=== PATIENT | female | born 1950 | race African-American/Black ===

== ENCOUNTER 2018-09-22 02:31 | Emergency (ER) | payer MEDICARE, MEDICAID ==
[2018-09-22] MEDS ORDERED: METOCLOPRAMIDE HCL INJ/PF 10 MG/2 ML SDV IV ONE (02:54)
[2018-09-22] MEDS ORDERED: RINGERS SOLUTION,LACTATED 500 ML IV ONE (02:54)
[2018-09-22] MEDS ORDERED: HYDROMORPHONE HCL INJ/PF 2 MG/ML AMPULE IV PRN (02:54)
--- NOTE | 2018-09-22 03:36 | ER Document Report ---
ED General - General Stated Complaint: ABDOMINAL PAIN Time Seen by Provider: 09/22/18 02:35 Notes: Patient is a 68-year-old female with a past medical history of stage IV liver cancer, currently on hospice who presents by EMS due to concerns of uncontrolled pain. The patient is taking multiple forms of pain medication at home including oral hydromorphone but this is not been controlling her abdominal pain today. The patient also reports that she has not had a bowel movement in approximately 24 hours. She also states that she is having difficulty urinating. Abdominal pain is described as diffuse, throbbing, aching and constant in nature. She states that her oral pain medications moderately can improve her pain. Nothing worsens her pain. She has not had any vomiting or any significant nausea. No fever or constitutional symptoms. Daughter at the bedside states that this is not atypical for the patient to have pain to this degree. Past Medical History - General Information source: Patient, Relative - Social History Smoking Status: Never Smoker Frequency of alcohol use: None Drug Abuse: None Lives with: Family Family History: Reviewed & Not Pertinent Review of Systems - Review of Systems Notes: Constitutional: Negative for fever. HENT: Negative for sore throat. Eyes: Negative for visual changes. Cardiovascular: Negative for chest pain. Respiratory: Negative for shortness of breath. Gastrointestinal: Positive for abdominal pain, nausea Genitourinary: Positive for urinary hesitancy Negative for dysuria. Musculoskeletal: Negative for back pain. Skin: Negative for rash. Neurological: Negative for headaches, weakness or numbness. 10 point ROS negative except as marked above and in HPI. Physical Exam - Vital signs Vitals: Temp Pulse Resp BP Pulse Ox 98.1 F 74 16 171/81 H 99 09/22/18 02:44 09/22/18 02:44 09/22/18 02:44 09/22/18 02:44 09/22/18 02:44 Interpretation: Hypertensive Notes: PHYSICAL EXAMINATION: GENERAL: Appears moderately uncomfortable but in no acute distress HEAD: Atraumatic, normocephalic. EYES: Pupils equal round and reactive to light, extraocular movements intact, sclera anicteric, conjunctiva are normal. ENT: nares patent, oropharynx clear without exudates. Moist mucous membranes. NECK: Normal range of motion, supple without lymphadenopathy LUNGS: Breath sounds clear to auscultation bilaterally and equal. No wheezes rales or rhonchi. HEART: Regular rate and rhythm without murmurs ABDOMEN: Soft, nontender, normoactive bowel sounds. No guarding, no rebound. No masses appreciated. EXTREMITIES: Normal range of motion, no pitting or edema. No cyanosis. NEUROLOGICAL: No focal neurological deficits. Moves all extremities spontaneously and on command. PSYCH: Highly anxious SKIN: Warm, Dry, normal turgor, no rashes or lesions noted. Course - Re-evaluation Re-evalutation: 09/22/18 03:45 Patient presents with generalized abdominal pain, difficulty having a bowel movements, difficulty urinating. Patient appears quite uncomfortable although is improved after receiving IV hydromorphone. She has not had vomiting. I had a very clear conversation with the patient and her daughter at bedside about what the goals of care were today. Patient and family at bedside agree that we do not wish to pursue any diagnostic work-up and the patient is here exclusively for symptom control as she is on hospice with terminal cancer. As her pain has been improved here in the emergency department she will be discharged home with follow-up recommendations and continue guidance with hospice. - Vital Signs Vital signs: Temp Pulse Resp BP Pulse Ox 98.1 F 74 16 171/81 H 99 09/22/18 02:44 09/22/18 02:44 09/22/18 02:44 09/22/18 02:44 09/22/18 02:44 Discharge - Discharge Clinical Impression: Metastatic cancer to liver, Chronic abdominal pain Condition: Good Disposition: HOME, SELF-CARE Additional Instructions: As you are in hospice care, we have elected to not proceed with imaging or labs today rather treating your pain. You may return to the emergency department at any time for control of your symptoms. Please continue taking all medications as prescribed your hospice care.
[2018-09-22 05:32] VITALS: BP 152/76
== END 2018-09-22 05:30 | disposition home or self-care (01) ==
LOC: ER 02:31
DX: C22.8 Malignant neoplasm of liver, primary, unspecified as to type (principal); C79.9 Secondary malignant neoplasm of unspecified site; G89.29 Other chronic pain; R10.9 Unspecified abdominal pain; R11.0 Nausea; R39.11 Hesitancy of micturition
CPT/HCPCS: 99284; 96374; 96375; J2765; J1170; J7120

== ENCOUNTER 2018-10-04 17:51 | Inpatient (IN) | payer MEDICARE, MEDICAID ==
[2018-10-04 18:41] LABS: ABSOLUTE MONOCYTES (AUTO) 0.8 10^3/uL (0.1-1.4); ABSOLUTE NEUT (AUTO) 5.7 10^3/uL (1.7-8.2); BASOPHILS % (AUTO) 0.3 % (0-2); HEMATOCRIT 42.5 % (36.0-47.0); HEMOGLOBIN 13.9 g/dL (12.0-15.5); LYMPHOCYTES % (AUTO) 23.5 % (13-45); MEAN CORPUSCULAR HEMOGLOBIN 25.9 pg (27.0-33.4); MEAN CORPUSCULAR HGB CONC 32.8 g/dL (32.0-36.0); MEAN CORPUSCULAR VOLUME 79 fl (80-97); MONOCYTES % (AUTO) 9.4 % (3-13); PLATELET COUNT 182 10^3/uL (150-450); RED BLOOD COUNT 5.39 10^6/uL (3.72-5.28); RED CELL DISTRIBUTION WIDTH 16.8 % (11.5-14.0); SEGMENTED NEUTROPHILS % (AUTO) 66.8 % (42-78); TOTAL CELLS COUNTED % (AUTO) 100 %; WHITE BLOOD COUNT 8.5 10^3/uL (4.0-10.5)
[2018-10-04] MEDS ORDERED: MORPHINE SULFATE 10 MG/ML INJ IV ONE (18:42)
[2018-10-04] MEDS ORDERED: ONDANSETRON HCL INJ/PF 4 MG/2 ML SDV IV ONE (18:42)
--- NOTE | 2018-10-04 18:46 | ER Document Report ---
ED GI/ - General Chief Complaint: Pain Stated Complaint: ABDOMINAL PAIN Time Seen by Provider: 10/04/18 18:23 Information source: Patient Cannot obtain history due to: Other - Patient is a poor historian. TRAVEL OUTSIDE OF THE [place] IN LAST 30 DAYS: No - HPI Patient complains to provider of: Abdominal pain Onset: Other - 3 weeks. Timing/Duration: Gradual Quality of pain: Sharp Severity at maximum: Moderate Severity in ED: Moderate Pain Level: 3 Vaginal bleeding (Compared to normal period): None Associated symptoms: Other - Patient said the refrigerator fell on top of part 3 weeks ago. Exacerbated by: Movement Relieved by: Remaining still Similar symptoms previously: No Recently seen / treated by doctor: No - Related Data Allergies/Adverse Reactions: Iodinated Contrast- Oral and IV Dye Allergy (Verified 10/04/18 20:10) morphine Allergy (Verified 10/04/18 18:48) Sulfa (Sulfonamide Antibiotics) Allergy (Verified 10/04/18 18:35) Past Medical History - Social History Smoking Status: Unknown if Ever Smoked Family History: Reviewed & Not Pertinent Patient has suicidal ideation: No Patient has homicidal ideation: No Renal/ Medical History: Denies: Hx Peritoneal Dialysis GI Medical History: Reports: Hx Gastroesophageal Reflux Disease Past Surgical History: Reports: Hx Hysterectomy Review of Systems - Review of Systems Constitutional: No symptoms reported EENT: No symptoms reported Cardiovascular: No symptoms reported Respiratory: No symptoms reported Gastrointestinal: Abdominal pain. denies: Diarrhea, Nausea, Vomiting Genitourinary: No symptoms reported Female Genitourinary: No symptoms reported Musculoskeletal: No symptoms reported Skin: No symptoms reported Hematologic/Lymphatic: No symptoms reported Neurological/Psychological: No symptoms reported -: Yes All other systems reviewed and negative Physical Exam - Vital signs Vitals: Temp 98.2 F 10/04/18 18:21 Interpretation: Normal - General General appearance: Appears well, Alert - HEENT Head: Normocephalic, Atraumatic Eyes: Normal Pupils: PERRL - Respiratory Respiratory status: No respiratory distress Chest status: Nontender Breath sounds: Normal Chest palpation: Normal - Cardiovascular Rhythm: Regular Heart sounds: Normal auscultation Murmur: No - Abdominal Inspection: Other - Midline old surgical scar. Distension: Distended Bowel sounds: Normal Tenderness: Tender, Other - Diffuse tenderness to palpation. Organomegaly: No organomegaly - Back Back: Normal, Nontender - Extremities General upper extremity: Normal inspection, Nontender, Normal color, Normal ROM, Normal temperature General lower extremity: Normal inspection, Nontender, Normal color, Normal ROM, Normal temperature, Normal weight bearing. No: Eric's sign - Neurological Neuro grossly intact: Yes Cognition: Normal Orientation: AAOx4 [place] Coma Scale Eye Opening: Spontaneous Yobani Coma Scale Verbal: Oriented Yobani Coma Scale Motor: Obeys Commands Yobani Coma Scale Total: 15 Speech: Normal Motor strength normal: LUE, RUE, LLE, RLE Sensory: Normal - Psychological Associated symptoms: Normal affect, Normal mood - Skin Skin Temperature: Warm Skin Moisture: Dry Skin Color: Normal Course - Vital Signs Vital signs: Temp Pulse Resp BP Pulse Ox 98.3 F 74 18 147/82 H 96 10/05/18 02:12 10/05/18 02:12 10/05/18 02:12 10/05/18 02:12 10/05/18 02:12 - Laboratory Result Diagrams: 10/04/18 18:14 10/04/18 18:14 Laboratory results interpreted by me: 10/04/18 10/04/18 10/04/18 18:14 18:14 20:00 RBC 5.39 H MCV 79 L MCH 25.9 L RDW 16.8 H Sodium 134.6 L Potassium 3.4 L Chloride 97 L Glucose 64 L Direct Bilirubin 0.7 H AST 134 H ALT 123 H Alkaline Phosphatase 201 H Urine Glucose (UA) 150 H Urine Blood LARGE H Urine Urobilinogen 2.0 H Ur Leukocyte Esterase TRACE H - Diagnostic Test Radiology reviewed: Reports reviewed - EKG Interpretation by Me EKG shows normal: Sinus rhythm Rate: Normal Rhythm: NSR When compared to previous EKG there are: Previous EKG unavailable Additional EKG results interpreted by me: 10/04/18 19:44 LVH. No STEMI. - Transfer of Care Notes: 10/05/18 04:41 Patient will be admitted to the hospital by the hospitalist Dr. Nikita Mckeon for further management and pain control. Critical Care Note - Critical Care Note Total time excluding time spent on procedures (mins): 50 Comments: Multiple evaluations and consult to the hospitalist. Review of labs and imaging studies. Discharge - Discharge Clinical Impression: Intractable generalized abdominal pain Abdominal pain Qualifiers: Abdominal location: generalized Qualified Code(s): R10.84 - Generalized abdominal pain Liver cancer Qualifiers: Liver malignancy type: unspecified liver malignancy Qualified Code(s): C22.9 - Malignant neoplasm of liver, not specified as primary or secondary Condition: Stable Disposition: ADMITTED INPATIENT Admitting Provider: Mike (Hospitalist) Unit Admitted: Telemetry
[2018-10-04 18:51] LABS: ALANINE AMINOTRANSFERASE 123 U/L (9-52); ALBUMIN 3.5 g/dL (3.5-5.0); ALKALINE PHOSPHATASE 201 U/L (38-126); ANION GAP 9 (5-19); ASPARTATE AMINO TRANSFERASE 134 U/L (14-36); BILIRUBIN,DIRECT 0.7 mg/dL (0.0-0.4); BILIRUBIN,TOTAL 1.2 mg/dL (0.2-1.3); BLOOD UREA NITROGEN 12 mg/dL (7-20); CALCIUM 9.2 mg/dL (8.4-10.2); CARBON DIOXIDE 29 mmol/L (22-30); CHLORIDE 97 mmol/L (98-107); LIPASE 55.6 U/L (23-300); POTASSIUM 3.4 mmol/L (3.6-5.0); SODIUM 134.6 mmol/L (137-145); TOTAL PROTEIN 6.9 g/dL (6.3-8.2)
[2018-10-04 19:02] LABS: GLUCOSE 64 mg/dL (75-110)
[2018-10-04] MEDS ORDERED: DEXTROSE 50%-WATER 25 GM/50 ML DISP.SYRIN IV ONE (19:03)
[2018-10-04 19:07] LABS: NT PRO BNP 215 pg/mL (5-900)
[2018-10-04 19:08] LABS: TROPONIN I < 0.012 ng/mL
[2018-10-04] MEDS ORDERED: HYDROMORPHONE HCL INJ/PF 2 MG/ML AMPULE IV ONE ×2 (19:32→20:23)
[2018-10-04] MEDS ORDERED: DEXTROSE 10%-WATER 1,000 ML IV ONE (19:34)
--- NOTE | 2018-10-04 20:13 | RADIOLOGY REPORT (SQ) ---
EXAM DESCRIPTION: XR CHEST 1 VIEW COMPLETED DATE/TME: 10/04/2018 18:40 CLINICAL HISTORY: 68 years, Female, cough COMPARISON: None. NUMBER OF VIEWS: One TECHNIQUE: Single frontal view of the chest was obtained portably LIMITATIONS: None. FINDINGS: Cardiopericardial silhouette is normal. Convex outward bulge is noted about the right paratracheal stripe/suprahilar region, indeterminate. Lungs are clear. No pleural effusion or pneumothorax. IMPRESSION: No acute disease. Convex outward bulge about the right paratracheal stripe/right suprahilar region could indicate lymphadenopathy. Recommend correlation with CT of the chest. copyright 2010 [employer]- All Rights Reserved
[2018-10-04 20:33] LABS: BILIRUBIN,URINE NEGATIVE (NEGATIVE); GLUCOSE, URINE 150 mg/dL (NEGATIVE); KETONES,URINE NEGATIVE (NEGATIVE); LEUKOCYTE ESTERASE,URINE TRACE (NEGATIVE); NITRITE,URINE NEGATIVE (NEGATIVE); PROTEIN,URINE NEGATIVE (NEGATIVE)
[2018-10-04 20:35] LABS: APPEARANCE,URINE CLEAR; COLOR,URINE LIGHT YELLOW; URINE SPECIFIC GRAVITY 1.014
--- NOTE | 2018-10-04 22:00 | RADIOLOGY REPORT (SQ) ---
EXAM DESCRIPTION: CT ABDOMEN PELVIS WITHOUT IV CONTRAST COMPLETED DATE/TME: 10/04/2018 20:09 CLINICAL HISTORY: 68 years, Female, Abdominal pain. COMPARISON: None. TECHNIQUE: Noncontrast CT of the abdomen/pelvis was performed. Coronal and sagittal reformations were created. Images stored on PACS. All CT scanners at this facility use dose modulation, iterative reconstruction, and/or weight based dosing when appropriate to reduce radiation dose to as low as reasonably achievable (ALARA). [facility]: Dose Right [facility]: CareDose [facility]: Dose Right [facility]: Teradose 4D [facility]: Smart [employer] LIMITATIONS: None. FINDINGS: Limited evaluation of the lower chest reveals bibasilar atelectasis. There is a small pericardial effusion. The liver is somewhat nodular in contour. No definite focal liver lesions are appreciated. The spleen, pancreas, and both adrenal glands show no suspicious finding. Gallbladder appears normal as well. A few calculi are noted about both kidneys, the largest of which is located within the lower pole of the left kidney measuring 0.6 cm in size. No hydronephrosis or hydroureter. Urinary bladder is collapsed, thus its evaluation is limited. The uterus is absent. Neither ovary is visualized. The small and large bowel appear normal in caliber without areas of focal wall thickening. No evidence of bowel obstruction. The appendix is not visualized; however, no pericecal inflammatory changes are appreciated. A multilobulated mass is noted about the retroperitoneum (right para-aortic region at the L1 level), extruding mass effect upon the posterior margins of the pancreatic head. Additionally, this mass is inseparable from the adjacent caudate lobe. Overall, this mass measures approximately 7.3 x 5.7 cm in size on image 32 of series 3. Additional left para-aortic lymph nodes are evident measuring up to 3.4 x 1.4 cm in size on image 27 of series 3. Likewise, bone windows show interval destructive osseous lesions located about the lower thoracic and upper lumbar spine with associated paravertebral soft tissue components, specifically spanning T7-L1. Superimposed suspected retrocrural lymphadenopathy is noted as well. Calcifications are evident about the abdominal aorta and proximal iliac vessels. IMPRESSION: Bulky soft tissue mass located about the retroperitoneum which extrudes mass effect upon the posterior margins of the pancreatic head and is inseparable from the inferior aspect of the caudate lobe of the liver. Overall, this finding most likely indicates bulky retroperitoneal lymphadenopathy, and is suspicious for either metastatic disease or lymphoma. An exophytic mass emanating from the caudate lobe of the liver is considered less likely. Superimposed destructive osseous lesions involving the T7-L1 vertebral bodies with associated paravertebral soft tissue masses could indicate additional metastases or lymphomatous involvement. Small pericardial effusion. Nonobstructive bilateral nephrolithiasis. Somewhat nodular liver contour. Correlate for cirrhosis. TECHNICAL DOCUMENTATION: Quality ID # 436: Final reports with documentation of one or more dose reduction techniques (e.g., Automated exposure control, adjustment of the mA and/or kV according to patient size, use of iterative reconstruction technique) copyright 2011 [employer]- All Rights Reserved
[2018-10-04] MEDS ORDERED: LEVOFLOXACIN 750 MG/D5W RTU 750 MG/150 ML RTUPB IV ONE (22:14)
[2018-10-04] MEDS ORDERED: FENTANYL 50 MCG/HR PATCH.TD72 TD ONE (22:49)
[2018-10-04] MEDS ORDERED: TEMAZEPAM 15 MG CAPSULE PO PRN (23:43)
[2018-10-04] MEDS ORDERED: MAG HYDROX/AL HYDROX/SIMETH SUSP 30 ML UDCUP PO PRN (23:43)
[2018-10-04] MEDS ORDERED: IPRATROPIUM/ALBUTEROL 0.5-2.5 MG/3 ML AMPUL NEB PRN (23:43)
[2018-10-04] MEDS ORDERED: ACETAMINOPHEN 325 MG TABLET PO PRN (23:43)
[2018-10-04] MEDS ORDERED: DEXTROSE 5%-1/2 NORMAL SALINE 1,000 ML IV ONE (23:46)
[2018-10-05] MEDS: HYDROMORPHONE HCL INJ/PF 2 MG/ML AMPULE IV PRN ×5 (02:09→18:02)
--- NOTE | 2018-10-05 06:27 | PDOC H&P ---
History of Present Illness Admission Date/PCP: 10/04/18 22:55 IGOR VILLALOBOS MD Patient complains of: Abdominal pain History of Present Illness: HERNESTO SMITH is a 68 year old female with a past medical history of widespread metastatic liver cancer on hospice with intractable pain. She is accompanied by her daughter who reports intractable pain despite fentanyl 150 mics and methadone. They have attempted to initiate inpatient hospice via the hospice doctor Dr. Villalobos but have been unsuccessful. In the emergency room she requires IV Dilaudid for adequate control of symptoms. Imaging reveals widespread intra- abdominal and retroperitoneal metastasis. She is referred to the hospitalist for intractable pain. Daughter verifies CODE STATUS wishing comfort measures and hospice, placement. Past Medical History GI Medical History: Reports: Gastroesophageal Reflux Disease Psychiatric Medical History: Reports: Depression Past Surgical History Past Surgical History: Reports: Hysterectomy Social History Information Source: Relative, [facility] Records Lives with: Family Smoking Status: Unknown if Ever Smoked Frequency of Alcohol Use: None Hx Recreational Drug Use: Yes Drugs: None Hx Prescription Drug Abuse: No - Advance Directive Resuscitation Status: Do Not Resuscitate Family History Family History: Other - Unobtainable Parental Family History Reviewed: No - Unobtainable Children Family History Reviewed: No - Unobtainable Sibling(s) Family History Reviewed.: No - Unobtainable Medication/Allergy Home Medications: Fentanyl [Duragesic 100 Mcg/Hr Transdermal Patch] 100 mcg TOP Q3DAYS 10/05/18 Fentanyl [Duragesic 50 Mcg/Hr Transdermal Patch] 50 mcg TD Q3D 10/05/18 Hydromorphone HCl [Dilaudid 2 mg Tablet] 2 mg PO Q2 PRN 10/05/18 Methadone HCl [Dolophine 10 Mg Tablet] 10 mg PO Q6 10/05/18 Allergies/Adverse Reactions: Iodinated Contrast- Oral and IV Dye Allergy (Verified 10/04/18 20:10) morphine Allergy (Verified 10/04/18 18:48) Sulfa (Sulfonamide Antibiotics) Allergy (Verified 10/04/18 18:35) Review of Systems ROS unobtainable: Due to mental status - Sedated unobtainable Physical Exam Vital Signs: Temp Pulse Resp BP Pulse Ox 98.3 F 74 18 147/82 H 96 10/05/18 02:12 10/05/18 02:12 10/05/18 02:12 10/05/18 02:12 10/05/18 02:12 Intake & Output 10/03/18 10/04/18 10/05/18 11:59 11:59 11:59 Intake Total 100 Balance 100 Weight 90.2 kg General appearance: PRESENT: no acute distress - Heavily sedated Head exam: PRESENT: atraumatic, normocephalic Eye exam: PRESENT: conjunctiva pink, EOMI, PERRLA. ABSENT: scleral icterus Ear exam: PRESENT: normal external ear exam Mouth exam: PRESENT: moist, tongue midline Neck exam: ABSENT: carotid bruit, JVD, lymphadenopathy, thyromegaly Respiratory exam: PRESENT: clear to auscultation yane. ABSENT: rales, rhonchi, wheezes Cardiovascular exam: PRESENT: RRR, tachycardia. ABSENT: diastolic murmur, rubs, systolic murmur Pulses: PRESENT: normal dorsalis pedis pul Vascular exam: PRESENT: normal capillary refill GI/Abdominal exam: PRESENT: distended, firm, normal bowel sounds, rigid, soft. ABSENT: guarding, mass, organolmegaly, rebound, tenderness Rectal exam: PRESENT: deferred Extremities exam: PRESENT: full ROM. ABSENT: calf tenderness, clubbing, pedal edema Neurological exam: PRESENT: altered, oriented to person. ABSENT: awake, oriented to place, oriented to time Psychiatric exam: PRESENT: unusual affect Focused psych exam: PRESENT: other - Sedated Skin exam: PRESENT: dry, intact, warm. ABSENT: cyanosis, rash Results Laboratory Results: 10/04/18 18:14 10/04/18 18:14 10/04/18 10/04/18 10/04/18 18:14 18:14 20:00 WBC 8.5 RBC 5.39 H Hgb 13.9 Hct 42.5 MCV 79 L MCH 25.9 L MCHC 32.8 RDW 16.8 H Plt Count 182 Seg Neutrophils % 66.8 Lymphocytes % 23.5 Monocytes % 9.4 Eosinophils % 0.0 Basophils % 0.3 Absolute Neutrophils 5.7 Absolute Lymphocytes 2.0 Absolute Monocytes 0.8 Absolute Eosinophils 0.0 Absolute Basophils 0.0 Sodium 134.6 L Potassium 3.4 L Chloride 97 L Carbon Dioxide 29 Anion Gap 9 BUN 12 Creatinine 0.53 Est GFR ( Amer) > 60 Est GFR (Non-Af Amer) > 60 Glucose 64 L Calcium 9.2 Total Bilirubin 1.2 AST 134 H ALT 123 H Alkaline Phosphatase 201 H Total Protein 6.9 Albumin 3.5 Lipase 55.6 Urine Color LIGHT YELLOW Urine Appearance CLEAR Urine pH 6.0 Ur Specific [place] 1.014 Urine Protein NEGATIVE Urine Glucose (UA) 150 H Urine Ketones NEGATIVE Urine Blood LARGE H Urine Nitrite NEGATIVE Ur Leukocyte Esterase TRACE H Urine WBC (Auto) 85 Urine RBC (Auto) >182 10/04/18 10/04/18 18:14 18:14 Creatine Kinase 49 CK-MB (CK-2) 1.50 Troponin I < 0.012 NT-Pro-B Natriuret Pep 215 Impressions: Chest X-Ray 10/04/18 18:40 IMPRESSION: No acute disease. Convex outward bulge about the right paratracheal stripe/right suprahilar region could indicate lymphadenopathy. Recommend correlation with CT of the chest. copyright 2010 [employer]- All Rights Reserved Abdomen/Pelvis CT 10/04/18 20:09 IMPRESSION: Bulky soft tissue mass located about the retroperitoneum which extrudes mass effect upon the posterior margins of the pancreatic head and is inseparable from the inferior aspect of the caudate lobe of the liver. Overall, this finding most likely indicates bulky retroperitoneal lymphadenopathy, and is suspicious for either metastatic disease or lymphoma. An exophytic mass emanating from the caudate lobe of the liver is considered less likely. Superimposed destructive osseous lesions involving the T7-L1 vertebral bodies with associated paravertebral soft tissue masses could indicate additional metastases or lymphomatous involvement. Small pericardial effusion. Nonobstructive bilateral nephrolithiasis. Somewhat nodular liver contour. Correlate for cirrhosis. TECHNICAL DOCUMENTATION: Quality ID # 436: Final reports with documentation of one or more dose reduction techniques (e.g., Automated exposure control, adjustment of the mA and/or kV according to patient size, use of iterative reconstruction technique) copyright 2011 [employer]- All Rights Reserved Assessment and Plan - Diagnosis (1) Intractable generalized abdominal pain Is this a current diagnosis for this admission?: Yes Plan: Optimize medication regiment continue transdermal fentanyl, IV Dilaudid as needed. (2) Liver cancer Qualifiers: Liver malignancy type: unspecified liver malignancy Qualified Code(s): C22.9 - Malignant neoplasm of liver, not specified as primary or secondary Is this a current diagnosis for this admission?: Yes Plan: Terminal, requesting hospice placement, discharge planning consulted - Time Time Spent with patient: 35 or more minutes - Inpatient Certification Medical Necessity: Need Close Monitoring Due to Risk of Patient Decompensation
[2018-10-05] MEDS: DOCUSATE SODIUM 100 MG CAPSULE PO SCH ×2 (11:47→17:43)
[2018-10-05] MEDS: LACTULOSE SYRUP 20 GM/30 ML UDCUP PO SCH (11:47)
[2018-10-05] MEDS: NA PHOS,M-B/NA PHOS,DI-BA (ADULT) 133 ML ENEMA PR SCH (11:47)
[2018-10-05] MEDS: HEPARIN SOD (PORCINE) 5,000 UNIT/ML 1 ML SYRINGE SUBCUT SCH (11:47)
[2018-10-05] MEDS: MAGNESIUM HYDROXIDE SUSP 30 ML UDCUP PO SCH (11:48)
[2018-10-05] MEDS: DEXAMETHASONE 4 MG TABLET PO SCH ×2 (12:49→14:18)
[2018-10-05] MEDS ORDERED: FENTANYL 75 MCG/HR PATCH.TD72 TD SCH (14:00)
[2018-10-05] MEDS ORDERED: ONDANSETRON HCL INJ/PF 4 MG/2 ML SDV IV PRN (14:26)
[2018-10-05] MEDS ORDERED: HYDROMORPHONE HCL INJ/PF 2 MG/ML AMPULE ONE (16:50)
[2018-10-05] MEDS ORDERED: METHADONE HCL 10 MG TABLET PO SCH ×2 (17:00→18:00)
[2018-10-05] MEDS: METHADONE HCL 10 MG TABLET PO SCH (17:43)
[2018-10-05] MEDS: LORAZEPAM INJ 2 MG/1 ML VIAL IV PRN (18:08)
--- NOTE | 2018-10-05 18:38 | Progress Note Acknowledgement ---
Progress Note Acknowledgement Progess Note Acknowledgement: I, the undersigned member of the medical staff with appropriate privileges and with supervisory authority over Shari Cruz, a [facility] practice allied health professional, acknowledge that I have reviewed the progress notes entered on this patient, and in my professional judgment believe that the assessment made and/or any care evidenced was appropriate
--- NOTE | 2018-10-05 18:38 | PDOC PROGRESS REPORT ---
Subjective Progress Note for:: 10/05/18 Subjective:: HERNESTO SMITH is a 68 year old female with a past medical history of widespread metastatic liver cancer on hospice admitted 10/05/2018 for intractable pain. Patient was seen on afternoon rounds with her daughter present. She was found ambulating in the room. She is in clear distress related to her intractable pain. She is breathing easily on room air and speaks in full sentences. She denies nausea or vomiting but is unable to provide any additional HPI as she is distracted by her discomfort. Did discuss with her family member options for TICKET SPECULATOR pump; patient ultimately declined it due to fear of accidental overdose (was unable to clarify this with her) therefore we will continue with combination of as needed IV with scheduled oral medications. Reason For Visit: INTRACTABLE PAIN TERMINAL CANCER Physical Exam Vital Signs: Temp Pulse Resp BP Pulse Ox 98.1 F 69 15 166/85 H 99 10/05/18 12:16 10/05/18 12:16 10/05/18 12:16 10/05/18 12:16 10/05/18 12:16 Intake & Output 10/04/18 10/05/18 10/06/18 06:59 06:59 06:59 Intake Total 100 Balance 100 Weight 90.2 kg General appearance: PRESENT: no acute distress, mild distress, obese, well- developed, well-nourished Head exam: PRESENT: atraumatic, normocephalic Eye exam: PRESENT: conjunctiva pink, EOMI, PERRLA. ABSENT: scleral icterus Ear exam: PRESENT: normal external ear exam Mouth exam: PRESENT: moist, tongue midline Neck exam: ABSENT: carotid bruit, JVD, lymphadenopathy, thyromegaly Respiratory exam: PRESENT: clear to auscultation yane, symmetrical, unlabored. ABSENT: rales, rhonchi, wheezes Cardiovascular exam: PRESENT: RRR. ABSENT: diastolic murmur, rubs, systolic murmur Pulses: PRESENT: normal dorsalis pedis pul Vascular exam: PRESENT: normal capillary refill GI/Abdominal exam: PRESENT: normal bowel sounds, soft. ABSENT: distended, guarding, mass, organolmegaly, rebound, tenderness Rectal exam: PRESENT: deferred Extremities exam: PRESENT: full ROM. ABSENT: calf tenderness, clubbing, pedal edema Neurological exam: PRESENT: alert, awake, oriented to person, oriented to place, oriented to time, oriented to situation, CN II-XII grossly intact. ABSENT: motor sensory deficit Psychiatric exam: PRESENT: anxious, appropriate affect, normal mood. ABSENT: homicidal ideation, suicidal ideation Skin exam: PRESENT: dry, intact, warm. ABSENT: cyanosis, rash Results Laboratory Results: 10/04/18 18:14 10/04/18 18:14 10/04/18 10/04/18 10/04/18 18:14 18:14 20:00 WBC 8.5 RBC 5.39 H Hgb 13.9 Hct 42.5 MCV 79 L MCH 25.9 L MCHC 32.8 RDW 16.8 H Plt Count 182 Seg Neutrophils % 66.8 Lymphocytes % 23.5 Monocytes % 9.4 Eosinophils % 0.0 Basophils % 0.3 Absolute Neutrophils 5.7 Absolute Lymphocytes 2.0 Absolute Monocytes 0.8 Absolute Eosinophils 0.0 Absolute Basophils 0.0 Sodium 134.6 L Potassium 3.4 L Chloride 97 L Carbon Dioxide 29 Anion Gap 9 BUN 12 Creatinine 0.53 Est GFR ( Amer) > 60 Est GFR (Non-Af Amer) > 60 Glucose 64 L Calcium 9.2 Total Bilirubin 1.2 AST 134 H ALT 123 H Alkaline Phosphatase 201 H Total Protein 6.9 Albumin 3.5 Lipase 55.6 Urine Color LIGHT YELLOW Urine Appearance CLEAR Urine pH 6.0 Ur Specific [place] 1.014 Urine Protein NEGATIVE Urine Glucose (UA) 150 H Urine Ketones NEGATIVE Urine Blood LARGE H Urine Nitrite NEGATIVE Ur Leukocyte Esterase TRACE H Urine WBC (Auto) 85 Urine RBC (Auto) >182 10/04/18 10/04/18 18:14 18:14 Creatine Kinase 49 CK-MB (CK-2) 1.50 Troponin I < 0.012 NT-Pro-B Natriuret Pep 215 Impressions: Chest X-Ray 10/04/18 18:40 IMPRESSION: No acute disease. Convex outward bulge about the right paratracheal stripe/right suprahilar region could indicate lymphadenopathy. Recommend correlation with CT of the chest. copyright 2011 [employer]- All Rights Reserved Abdomen/Pelvis CT 10/04/18 20:09 IMPRESSION: Bulky soft tissue mass located about the retroperitoneum which extrudes mass effect upon the posterior margins of the pancreatic head and is inseparable from the inferior aspect of the caudate lobe of the liver. Overall, this finding most likely indicates bulky retroperitoneal lymphadenopathy, and is suspicious for either metastatic disease or lymphoma. An exophytic mass emanating from the caudate lobe of the liver is considered less likely. Superimposed destructive osseous lesions involving the T7-L1 vertebral bodies with associated paravertebral soft tissue masses could indicate additional metastases or lymphomatous involvement. Small pericardial effusion. Nonobstructive bilateral nephrolithiasis. Somewhat nodular liver contour. Correlate for cirrhosis. TECHNICAL DOCUMENTATION: Quality ID # 436: Final reports with documentation of one or more dose reduction techniques (e.g., Automated exposure control, adjustment of the mA and/or kV according to patient size, use of iterative reconstruction technique) copyright 2011 [employer]- All Rights Reserved Assessment and Plan - Diagnosis (1) Intractable generalized abdominal pain Is this a current diagnosis for this admission?: Yes Plan: Continue home dose fentanyl patch 150 mcg/hr. Increase scheduled methadone to 15 mg every 6 hours. Provide Dilaudid 2 mg IV hourly as needed. Lidoderm patch. Heating pad. (2) Liver cancer Qualifiers: Liver malignancy type: unspecified liver malignancy Qualified Code(s): C22.9 - Malignant neoplasm of liver, not specified as primary or secondary Is this a current diagnosis for this admission?: Yes Plan: Terminal, requesting hospice placement and comfort care measures only. Pain medications as above. Ativan 1 mg IV hourly as needed. Bowel regiment. Discharge planning is consulted. - Time Time Spent with patient: 25-34 minutes Medications reviewed and adjusted accordingly: Yes Anticipated discharge: Hospice
--- NOTE | 2018-10-05 19:18 | EKG REPORT ---
SEVERITY:- ABNORMAL ECG - SINUS RHYTHM PROBABLE LEFT ATRIAL ABNORMALITY PROBABLE LEFT VENTRICULAR HYPERTROPHY : Confirmed by: Vicki Hargrove 05-Oct-2018 19:18:04
[2018-10-06] MEDS: METHADONE HCL 10 MG TABLET PO SCH ×4 (05:23→17:55)
[2018-10-06] MEDS: DEXAMETHASONE 4 MG TABLET PO SCH ×5 (05:23→21:47)
[2018-10-06] MEDS: HYDROMORPHONE HCL INJ/PF 2 MG/ML AMPULE IV PRN ×5 (05:53→21:47)
[2018-10-06] MEDS ORDERED: HYDROMORPHONE HCL 2 MG TABLET PO PRN (07:48)
[2018-10-06] MEDS ORDERED: FENTANYL 75 MCG/HR PATCH.TD72 TD SCH ×3 (09:00→10:00)
[2018-10-06] MEDS: HEPARIN SOD (PORCINE) 5,000 UNIT/ML 1 ML SYRINGE SUBCUT SCH (10:15)
[2018-10-06] MEDS: DOCUSATE SODIUM 100 MG CAPSULE PO SCH ×2 (10:17→17:55)
[2018-10-06] MEDS: LIDOCAINE 5% (700 MG) TRANSDERMAL ADH..PATCH TP SCH (10:17)
[2018-10-06] MEDS: LACTULOSE SYRUP 20 GM/30 ML UDCUP PO SCH (10:29)
[2018-10-06] MEDS: NA PHOS,M-B/NA PHOS,DI-BA (ADULT) 133 ML ENEMA PR SCH (10:29)
[2018-10-06] MEDS: MAGNESIUM HYDROXIDE SUSP 30 ML UDCUP PO SCH (10:29)
[2018-10-06] MEDS: METHOCARBAMOL 500 MG TABLET PO SCH ×2 (10:42→17:55)
[2018-10-06] MEDS ORDERED: METOCLOPRAMIDE HCL ORAL SOLN 10 MG/10 ML UDCUP PO ONE (11:00)
[2018-10-06] MEDS ORDERED: MAG HYDROX/AL HYDROX/SIMETH SUSP 30 ML UDCUP PO ONE (11:00)
[2018-10-06] MEDS ORDERED: LIDOCAINE 2% VISCOUS SOLN 20 ML UDCUP PO ONE (11:00)
[2018-10-06] MEDS: HYDROMORPHONE HCL 2 MG TABLET PO PRN ×3 (14:11→20:36)
--- NOTE | 2018-10-06 17:04 | PDOC PROGRESS REPORT ---
Subjective Progress Note for:: 10/06/18 Subjective:: HERNESTO SMITH is a 68 year old female with a past medical history of widespread metastatic liver cancer on hospice admitted 10/05/2018 for intractable pain. Patient was seen on morning rounds. She was found resting in bed comfortably on room air. She is noted to have occasional spasm-like episodes of pain that she indicates start in her right flank and radiate to her epigastric region. She also notes that she has some muscle cramps overnight. She does tell me that she was able to sleep for period of time and she is very thankful for the care she has received here. She denies fever, chills, chest pain, dyspnea, nausea and vomiting. She does complain of reflux today. She has no other questions or concerns at this time. No concerns per nursing. Reason For Visit: INTRACTABLE PAIN TERMINAL CANCER Physical Exam Vital Signs: Temp Pulse Resp BP Pulse Ox 98.1 F 65 16 166/85 H 94 10/05/18 12:16 10/06/18 10:59 10/06/18 10:59 10/05/18 12:16 10/06/18 10:59 Intake & Output 10/05/18 10/06/18 10/07/18 06:59 06:59 06:59 Intake Total 100 800 237 Output Total 775 Balance 100 25 237 Weight 90.2 kg 89.3 kg General appearance: PRESENT: no acute distress, cooperative, obese, well- developed, well-nourished Head exam: PRESENT: atraumatic, normocephalic Eye exam: PRESENT: conjunctiva pink, EOMI, PERRLA. ABSENT: scleral icterus Ear exam: PRESENT: normal external ear exam Mouth exam: PRESENT: moist, tongue midline Neck exam: ABSENT: carotid bruit, JVD, lymphadenopathy, thyromegaly Respiratory exam: PRESENT: clear to auscultation yane, symmetrical, unlabored. ABSENT: rales, rhonchi, wheezes Cardiovascular exam: PRESENT: RRR, +S1, +S2. ABSENT: diastolic murmur, rubs, systolic murmur Pulses: PRESENT: normal dorsalis pedis pul Vascular exam: PRESENT: normal capillary refill GI/Abdominal exam: PRESENT: normal bowel sounds, soft. ABSENT: distended, guarding, mass, organolmegaly, rebound, tenderness Rectal exam: PRESENT: deferred Extremities exam: PRESENT: full ROM. ABSENT: calf tenderness, clubbing, pedal edema Musculoskeletal exam: PRESENT: ambulatory Neurological exam: PRESENT: alert, awake, oriented to person, oriented to place, oriented to time, oriented to situation, CN II-XII grossly intact. ABSENT: motor sensory deficit Psychiatric exam: PRESENT: appropriate affect, normal mood. ABSENT: homicidal ideation, suicidal ideation Skin exam: PRESENT: dry, intact, warm. ABSENT: cyanosis, rash Results Laboratory Results: 10/04/18 18:14 10/04/18 18:14 10/04/18 20:00 Catheterized Urine Urine Culture - Final NO GROWTH 2 DAYS 10/04/18 10/04/18 18:14 18:14 Creatine Kinase 49 CK-MB (CK-2) 1.50 Troponin I < 0.012 NT-Pro-B Natriuret Pep 215 Impressions: Chest X-Ray 10/04/18 18:40 IMPRESSION: No acute disease. Convex outward bulge about the right paratracheal stripe/right suprahilar region could indicate lymphadenopathy. Recommend correlation with CT of the chest. copyright 2011 [employer]- All Rights Reserved Abdomen/Pelvis CT 10/04/18 20:09 IMPRESSION: Bulky soft tissue mass located about the retroperitoneum which extrudes mass effect upon the posterior margins of the pancreatic head and is inseparable from the inferior aspect of the caudate lobe of the liver. Overall, this finding most likely indicates bulky retroperitoneal lymphadenopathy, and is suspicious for either metastatic disease or lymphoma. An exophytic mass emanating from the caudate lobe of the liver is considered less likely. Superimposed destructive osseous lesions involving the T7-L1 vertebral bodies with associated paravertebral soft tissue masses could indicate additional metastases or lymphomatous involvement. Small pericardial effusion. Nonobstructive bilateral nephrolithiasis. Somewhat nodular liver contour. Correlate for cirrhosis. TECHNICAL DOCUMENTATION: Quality ID # 436: Final reports with documentation of one or more dose reduction techniques (e.g., Automated exposure control, adjustment of the mA and/or kV according to patient size, use of iterative reconstruction technique) copyright 2011 [employer]- All Rights Reserved Assessment and Plan - Diagnosis (1) Intractable generalized abdominal pain Is this a current diagnosis for this admission?: Yes Plan: Somewhat improved today. Continue home dose fentanyl patch 150 mcg/hr; consider increase to 200 mcg tomorrow if continues to require frequent prn dilaudid. Continue scheduled methadone to 15 mg every 6 hours. Dilaudid 3 mg p.o q 2 hours for pain Provide Dilaudid 2 mg IV hourly as needed for breakthrough pain Lidoderm patch. Heating pad. (2) Liver cancer Qualifiers: Liver malignancy type: unspecified liver malignancy Qualified Code(s): C22.9 - Malignant neoplasm of liver, not specified as primary or secondary Is this a current diagnosis for this admission?: Yes Plan: Terminal, requesting hospice placement and comfort care measures only. Pain medications as above. Ativan 1 mg IV hourly as needed. Bowel regiment. Discharge planning is consulted. (3) GERD (gastroesophageal reflux disease) Is this a current diagnosis for this admission?: Yes Plan: GI cocktail x 1 Maalox q 6 hours prn Daily protonix - Time Time Spent with patient: 25-34 minutes Medications reviewed and adjusted accordingly: Yes Anticipated discharge: Hospice
[2018-10-06] MEDS: LORAZEPAM INJ 2 MG/1 ML VIAL IV PRN (20:35)
[2018-10-07] MEDS: METHADONE HCL 10 MG TABLET PO SCH ×3 (06:18→12:48)
[2018-10-07] MEDS: METHOCARBAMOL 500 MG TABLET PO SCH ×4 (06:18→18:32)
[2018-10-07] MEDS: DEXAMETHASONE 4 MG TABLET PO SCH ×2 (07:13→15:46)
[2018-10-07] MEDS: PANTOPRAZOLE SODIUM 20 MG TABLET.DR PO SCH (07:13)
[2018-10-07] MEDS ORDERED: FENTANYL 100 MCG/HR PATCH.TD72 TD ONE (09:00)
[2018-10-07] MEDS: LACTULOSE SYRUP 20 GM/30 ML UDCUP PO SCH (09:41)
[2018-10-07] MEDS: HYDROMORPHONE HCL 2 MG TABLET PO PRN ×2 (09:41→15:48)
[2018-10-07] MEDS: NA PHOS,M-B/NA PHOS,DI-BA (ADULT) 133 ML ENEMA PR SCH (09:44)
[2018-10-07] MEDS: DOCUSATE SODIUM 100 MG CAPSULE PO SCH ×2 (09:45→17:37)
[2018-10-07] MEDS: MAGNESIUM HYDROXIDE SUSP 30 ML UDCUP PO SCH (09:45)
[2018-10-07] MEDS: LORAZEPAM INJ 2 MG/1 ML VIAL IV PRN ×3 (10:32→18:32)
[2018-10-07] MEDS: LIDOCAINE 5% (700 MG) TRANSDERMAL ADH..PATCH TP SCH (10:33)
[2018-10-07] MEDS: HYDROMORPHONE HCL INJ/PF 2 MG/ML AMPULE IV PRN (12:48)
[2018-10-07] MEDS: DIVALPROEX SODIUM 250 MG TAB.SR.24H PO SCH (15:46)
--- NOTE | 2018-10-07 19:42 | PDOC PROGRESS REPORT ---
Subjective Progress Note for:: 10/07/18 Subjective:: HERNESTO SMITH is a 68 year old female with a past medical history of widespread metastatic liver cancer on hospice admitted 10/05/2018 for intractable pain. Patient was seen on morning rounds with family members present. She was found resting in bed comfortably on room air. She is in clear discomfort and though slept well overnight has not had controlled pain since waking. Per nursing, the patient does not request prn medications until she is "in agony." She denies fever, chills, chest pain, dyspnea, nausea and vomiting. She has no other questions or concerns at this time. No concerns per nursing. Reason For Visit: INTRACTABLE PAIN TERMINAL CANCER Physical Exam Vital Signs: Temp Pulse Resp BP Pulse Ox 98.1 F 65 16 166/85 H 94 10/05/18 12:16 10/06/18 10:59 10/06/18 10:59 10/05/18 12:16 10/06/18 10:59 Intake & Output 10/06/18 10/07/18 10/08/18 06:59 06:59 06:59 Intake Total 800 874 894 Output Total 775 500 750 Balance 25 374 144 Weight 89.3 kg 90.3 kg General appearance: PRESENT: no acute distress, mild distress, morbidly obese, well-developed, well-nourished Head exam: PRESENT: atraumatic, normocephalic Eye exam: PRESENT: conjunctiva pink, EOMI, PERRLA. ABSENT: scleral icterus Ear exam: PRESENT: normal external ear exam Mouth exam: PRESENT: moist, tongue midline Neck exam: ABSENT: carotid bruit, JVD, lymphadenopathy, thyromegaly Respiratory exam: PRESENT: clear to auscultation yane, symmetrical, unlabored. ABSENT: rales, rhonchi, wheezes Cardiovascular exam: PRESENT: RRR, +S1, +S2. ABSENT: diastolic murmur, rubs, systolic murmur Pulses: PRESENT: normal dorsalis pedis pul Vascular exam: PRESENT: normal capillary refill GI/Abdominal exam: PRESENT: normal bowel sounds, soft. ABSENT: distended, guarding, mass, organolmegaly, rebound, tenderness Rectal exam: PRESENT: deferred Extremities exam: PRESENT: full ROM. ABSENT: calf tenderness, clubbing, pedal edema Neurological exam: PRESENT: alert, awake, oriented to person, oriented to place, oriented to time, oriented to situation, CN II-XII grossly intact. ABSENT: motor sensory deficit Psychiatric exam: PRESENT: appropriate affect, normal mood. ABSENT: homicidal ideation, suicidal ideation Skin exam: PRESENT: dry, intact, warm. ABSENT: cyanosis, rash Results Laboratory Results: 10/04/18 18:14 10/04/18 18:14 10/04/18 10/04/18 18:14 18:14 Creatine Kinase 49 CK-MB (CK-2) 1.50 Troponin I < 0.012 NT-Pro-B Natriuret Pep 215 Impressions: Chest X-Ray 10/04/18 18:40 IMPRESSION: No acute disease. Convex outward bulge about the right paratracheal stripe/right suprahilar region could indicate lymphadenopathy. Recommend correlation with CT of the chest. copyright 2010 [employer]- All Rights Reserved Abdomen/Pelvis CT 10/04/18 20:09 IMPRESSION: Bulky soft tissue mass located about the retroperitoneum which extrudes mass effect upon the posterior margins of the pancreatic head and is inseparable from the inferior aspect of the caudate lobe of the liver. Overall, this finding most likely indicates bulky retroperitoneal lymphadenopathy, and is suspicious for either metastatic disease or lymphoma. An exophytic mass emanating from the caudate lobe of the liver is considered less likely. Superimposed destructive osseous lesions involving the T7-L1 vertebral bodies with associated paravertebral soft tissue masses could indicate additional metastases or lymphomatous involvement. Small pericardial effusion. Nonobstructive bilateral nephrolithiasis. Somewhat nodular liver contour. Correlate for cirrhosis. TECHNICAL DOCUMENTATION: Quality ID # 436: Final reports with documentation of one or more dose reduction techniques (e.g., Automated exposure control, adjustment of the mA and/or kV according to patient size, use of iterative reconstruction technique) copyright 2011 [employer]- All Rights Reserved Assessment and Plan - Diagnosis (1) Intractable generalized abdominal pain Is this a current diagnosis for this admission?: Yes Plan: Received medication recommendations from [facility] provider today. Patient is agreeable to RELAY ASSOCIATE pump. Awaiting in patient placement at [facility] center. Continue fentanyl patch 200 mcg Continue scheduled methadone to 15 mg every 12 hours. Lidoderm patch. Heating pad. Now on RELAY ASSOCIATE of dilaudid w/ basal 1 mg/hr, 0.25 mg RELAY ASSOCIATE q15 min (2) Liver cancer Qualifiers: Liver malignancy type: unspecified liver malignancy Qualified Code(s): C22.9 - Malignant neoplasm of liver, not specified as primary or secondary Is this a current diagnosis for this admission?: Yes Plan: Terminal, requesting hospice placement and comfort care measures only. Pain medications as above. Ativan 1 mg IV hourly as needed. Bowel regiment. Discharge planning is consulted. (3) GERD (gastroesophageal reflux disease) Is this a current diagnosis for this admission?: Yes Plan: GI cocktail x 1 Maalox q 6 hours prn Daily protonix - Time Time Spent with patient: 35 or more minutes Medications reviewed and adjusted accordingly: Yes Anticipated discharge: Hospice Within: when bed available
[2018-10-07] MEDS: HYDROMORPHONE HCL 30 MG/60 ML RTUINJ IV PRN (20:00)
[2018-10-08] MEDS: DIVALPROEX SODIUM 250 MG TAB.SR.24H PO SCH ×3 (02:30→21:26)
[2018-10-08] MEDS: DEXAMETHASONE 4 MG TABLET PO SCH ×4 (02:30→21:26)
[2018-10-08] MEDS: METHADONE HCL 10 MG TABLET PO SCH ×3 (02:31→21:26)
[2018-10-08] MEDS: LORAZEPAM INJ 2 MG/1 ML VIAL IV PRN ×4 (02:46→21:26)
[2018-10-08] MEDS: METHOCARBAMOL 500 MG TABLET PO SCH ×4 (02:46→17:39)
[2018-10-08] MEDS: PANTOPRAZOLE SODIUM 20 MG TABLET.DR PO SCH (05:30)
[2018-10-08] MEDS: LACTULOSE SYRUP 20 GM/30 ML UDCUP PO SCH (09:25)
[2018-10-08] MEDS: LIDOCAINE 5% (700 MG) TRANSDERMAL ADH..PATCH TP SCH (09:26)
--- NOTE | 2018-10-08 17:10 | PDOC PROGRESS REPORT ---
Subjective Progress Note for:: 10/08/18 Subjective:: This is a 68 years old black female patient with past medical history of widespread stage IV metastatic liver cancer on hospice with intractable abdominal pain. Patient has been on dilated to PCP. Despite using the pump patient still in pain. Currently she has been awaiting hospice placement. Reason For Visit: INTRACTABLE PAIN TERMINAL CANCER Physical Exam Vital Signs: Temp Pulse Resp BP Pulse Ox 98.1 F 65 18 166/85 H 94 10/05/18 12:16 10/06/18 10:59 10/07/18 20:12 10/05/18 12:16 10/06/18 10:59 Intake & Output 10/07/18 10/08/18 10/09/18 06:59 06:59 06:59 Intake Total 874 894 350 Output Total 500 750 Balance 374 144 350 Weight 90.3 kg 88.5 kg Results Laboratory Results: 10/04/18 18:14 10/04/18 18:14 10/04/18 10/04/18 18:14 18:14 Creatine Kinase 49 CK-MB (CK-2) 1.50 Troponin I < 0.012 NT-Pro-B Natriuret Pep 215 Impressions: Chest X-Ray 10/04/18 18:40 IMPRESSION: No acute disease. Convex outward bulge about the right paratracheal stripe/right suprahilar region could indicate lymphadenopathy. Recommend correlation with CT of the chest. copyright 2011 [employer]- All Rights Reserved Abdomen/Pelvis CT 10/04/18 20:09 IMPRESSION: Bulky soft tissue mass located about the retroperitoneum which extrudes mass effect upon the posterior margins of the pancreatic head and is inseparable from the inferior aspect of the caudate lobe of the liver. Overall, this finding most likely indicates bulky retroperitoneal lymphadenopathy, and is suspicious for either metastatic disease or lymphoma. An exophytic mass emanating from the caudate lobe of the liver is considered less likely. Superimposed destructive osseous lesions involving the T7-L1 vertebral bodies with associated paravertebral soft tissue masses could indicate additional metastases or lymphomatous involvement. Small pericardial effusion. Nonobstructive bilateral nephrolithiasis. Somewhat nodular liver contour. Correlate for cirrhosis. TECHNICAL DOCUMENTATION: Quality ID # 436: Final reports with documentation of one or more dose reduction techniques (e.g., Automated exposure control, adjustment of the mA and/or kV according to patient size, use of iterative reconstruction technique) copyright 2011 [employer]- All Rights Reserved Assessment and Plan - Diagnosis (1) Intractable abdominal pain Is this a current diagnosis for this admission?: Yes Plan: Continue dilated PCP. (2) Stage IV liver cancer with wide metastas Is this a current diagnosis for this admission?: Yes Plan: Patient awaiting hospice placement.
[2018-10-08] MEDS: HYDROMORPHONE HCL INJ/PF 2 MG/ML AMPULE IV PRN (18:21)
[2018-10-09] MEDS: METHOCARBAMOL 500 MG TABLET PO SCH ×4 (04:50→17:24)
[2018-10-09] MEDS: LORAZEPAM INJ 2 MG/1 ML VIAL IV PRN ×4 (05:36→23:30)
[2018-10-09] MEDS: PANTOPRAZOLE SODIUM 20 MG TABLET.DR PO SCH (08:24)
[2018-10-09] MEDS: DEXAMETHASONE 4 MG TABLET PO SCH ×2 (08:24→13:48)
[2018-10-09] MEDS: DIVALPROEX SODIUM 250 MG TAB.SR.24H PO SCH (09:29)
[2018-10-09] MEDS: LACTULOSE SYRUP 20 GM/30 ML UDCUP PO SCH (09:29)
[2018-10-09] MEDS: METHADONE HCL 10 MG TABLET PO SCH ×2 (09:29→23:31)
[2018-10-09] MEDS: LIDOCAINE 5% (700 MG) TRANSDERMAL ADH..PATCH TP SCH (09:29)
[2018-10-09] MEDS: HYDROMORPHONE HCL INJ/PF 2 MG/ML AMPULE IV PRN ×3 (12:16→20:10)
--- NOTE | 2018-10-09 15:24 | PDOC PROGRESS REPORT ---
Subjective Progress Note for:: 10/09/18 Subjective:: This is a 68 years old black female patient with past medical history of widespread stage IV metastatic liver cancer on hospice with intractable abdominal pain. Patient has been on dilated to PCP. Despite using the pump patient still in pain. Currently she has been awaiting hospice placement. Reason For Visit: INTRACTABLE PAIN TERMINAL CANCER Physical Exam Vital Signs: Temp Pulse Resp BP Pulse Ox 98.1 F 65 16 166/85 H 94 10/05/18 12:16 10/06/18 10:59 10/08/18 18:59 10/05/18 12:16 10/06/18 10:59 Intake & Output 10/08/18 10/09/18 10/10/18 06:59 06:59 06:59 Intake Total 894 350 Output Total 750 Balance 144 350 Weight 88.5 kg 88.6 kg Results Laboratory Results: 10/04/18 18:14 10/04/18 18:14 10/04/18 10/04/18 18:14 18:14 Creatine Kinase 49 CK-MB (CK-2) 1.50 Troponin I < 0.012 NT-Pro-B Natriuret Pep 215 Impressions: Chest X-Ray 10/04/18 18:40 IMPRESSION: No acute disease. Convex outward bulge about the right paratracheal stripe/right suprahilar region could indicate lymphadenopathy. Recommend correlation with CT of the chest. copyright 2011 [employer]- All Rights Reserved Abdomen/Pelvis CT 10/04/18 20:09 IMPRESSION: Bulky soft tissue mass located about the retroperitoneum which extrudes mass effect upon the posterior margins of the pancreatic head and is inseparable from the inferior aspect of the caudate lobe of the liver. Overall, this finding most likely indicates bulky retroperitoneal lymphadenopathy, and is suspicious for either metastatic disease or lymphoma. An exophytic mass emanating from the caudate lobe of the liver is considered less likely. Superimposed destructive osseous lesions involving the T7-L1 vertebral bodies with associated paravertebral soft tissue masses could indicate additional metastases or lymphomatous involvement. Small pericardial effusion. Nonobstructive bilateral nephrolithiasis. Somewhat nodular liver contour. Correlate for cirrhosis. TECHNICAL DOCUMENTATION: Quality ID # 436: Final reports with documentation of one or more dose reduction techniques (e.g., Automated exposure control, adjustment of the mA and/or kV according to patient size, use of iterative reconstruction technique) copyright 2011 [employer]- All Rights Reserved Assessment and Plan - Diagnosis (1) Intractable abdominal pain Is this a current diagnosis for this admission?: Yes Plan: Continue dilated PCP. (2) Stage IV liver cancer with wide metastas Is this a current diagnosis for this admission?: Yes Plan: Patient awaiting hospice placement.
[2018-10-09 15:38] VITALS: BP 146/75
[2018-10-09] MEDS ORDERED: HALOPERIDOL LACTATE INJ 5 MG/1 ML VIAL ONE (21:02)
[2018-10-09] MEDS: HALOPERIDOL LACTATE INJ 5 MG/1 ML VIAL IV PRN (21:42)
[2018-10-10] MEDS: HYDROMORPHONE HCL INJ/PF 2 MG/ML AMPULE IV PRN ×2 (02:28→06:56)
[2018-10-10] MEDS: HALOPERIDOL LACTATE INJ 5 MG/1 ML VIAL IV PRN ×3 (04:34→23:45)
[2018-10-10] MEDS: DIVALPROEX SODIUM 250 MG TAB.SR.24H PO SCH ×3 (04:41→23:53)
[2018-10-10] MEDS: DEXAMETHASONE 4 MG TABLET PO SCH ×4 (04:41→23:53)
[2018-10-10] MEDS: METHOCARBAMOL 500 MG TABLET PO SCH ×4 (04:41→19:44)
[2018-10-10] MEDS: PANTOPRAZOLE SODIUM 20 MG TABLET.DR PO SCH (05:28)
[2018-10-10] MEDS ORDERED: NALOXONE HCL INJ/PF 0.4 MG/1 ML SDV IV PRN ×2 (10:12→12:00)
[2018-10-10] MEDS: HYDROMORPHONE HCL 30 MG/60 ML RTUINJ IV PRN (12:03)
[2018-10-10] MEDS: LACTULOSE SYRUP 20 GM/30 ML UDCUP PO SCH (12:08)
[2018-10-10] MEDS: LIDOCAINE 5% (700 MG) TRANSDERMAL ADH..PATCH TP SCH (12:12)
--- NOTE | 2018-10-10 14:37 | PDOC PROGRESS REPORT ---
Subjective Progress Note for:: 10/10/18 Subjective:: This is a 68 years old black female patient with past medical history of widespread stage IV metastatic liver cancer on hospice with intractable abdominal pain. Patient has been on dilated to PCP. Despite using the pump patient still in pain. Currently she has been awaiting hospice placement. 12/11/2018: Yesterday night patient had an episode of agitation and trying to pull out her IV lines and shows temporarily soft restraint out of wrist. Today I seen patient sleeping quietly the restraints were removed. Patient is potential discharge to [facility]. Reason For Visit: INTRACTABLE PAIN TERMINAL CANCER Physical Exam Vital Signs: Temp Pulse Resp BP Pulse Ox 98.0 F 79 16 146/75 H 96 10/09/18 07:34 10/09/18 14:04 10/10/18 07:29 10/09/18 14:04 10/10/18 03:00 Intake & Output 10/09/18 10/10/18 10/11/18 06:59 06:59 06:59 Intake Total 350 650 Balance 350 650 Weight 88.6 kg 88.6 kg Results Laboratory Results: 10/04/18 18:14 10/04/18 18:14 10/04/18 10/04/18 18:14 18:14 Creatine Kinase 49 CK-MB (CK-2) 1.50 Troponin I < 0.012 NT-Pro-B Natriuret Pep 215 Impressions: Chest X-Ray 10/04/18 18:40 IMPRESSION: No acute disease. Convex outward bulge about the right paratracheal stripe/right suprahilar region could indicate lymphadenopathy. Recommend correlation with CT of the chest. copyright 2010 [email or web address]- All Rights Reserved Abdomen/Pelvis CT 10/04/18 20:09 IMPRESSION: Bulky soft tissue mass located about the retroperitoneum which extrudes mass effect upon the posterior margins of the pancreatic head and is inseparable from the inferior aspect of the caudate lobe of the liver. Overall, this finding most likely indicates bulky retroperitoneal lymphadenopathy, and is suspicious for either metastatic disease or lymphoma. An exophytic mass emanating from the caudate lobe of the liver is considered less likely. Superimposed destructive osseous lesions involving the T7-L1 vertebral bodies with associated paravertebral soft tissue masses could indicate additional metastases or lymphomatous involvement. Small pericardial effusion. Nonobstructive bilateral nephrolithiasis. Somewhat nodular liver contour. Correlate for cirrhosis. TECHNICAL DOCUMENTATION: Quality ID # 436: Final reports with documentation of one or more dose reduction techniques (e.g., Automated exposure control, adjustment of the mA and/or kV according to patient size, use of iterative reconstruction technique) copyright 2011 [email or web address]- All Rights Reserved Assessment and Plan - Diagnosis (1) Intractable abdominal pain Is this a current diagnosis for this admission?: Yes Plan: Continue dilated PCP. (2) Stage IV liver cancer with wide metastas Is this a current diagnosis for this admission?: Yes Plan: Patient awaiting hospice placement.
[2018-10-10] MEDS: LORAZEPAM INJ 2 MG/1 ML VIAL IV PRN (16:27)
[2018-10-10] MEDS ORDERED: LORAZEPAM INJ 2 MG/1 ML VIAL ONE (18:20)
[2018-10-10] MEDS ORDERED: LORAZEPAM INJ 2 MG/1 ML VIAL IV ONE (19:00)
[2018-10-10] MEDS: PHARMACY COMMUNICATION ORDER MC SCH (23:53)
[2018-10-11] MEDS: LORAZEPAM INJ 2 MG/1 ML VIAL IV PRN (03:52)
[2018-10-11] MEDS: METHOCARBAMOL 500 MG TABLET PO SCH ×4 (03:53→17:15)
[2018-10-11] MEDS: DEXAMETHASONE 4 MG TABLET PO SCH ×3 (05:54→22:15)
[2018-10-11] MEDS: PANTOPRAZOLE SODIUM 20 MG TABLET.DR PO SCH (05:54)
[2018-10-11] MEDS: DIVALPROEX SODIUM 250 MG TAB.SR.24H PO SCH ×2 (09:51→22:16)
[2018-10-11] MEDS: LACTULOSE SYRUP 20 GM/30 ML UDCUP PO SCH (09:52)
[2018-10-11] MEDS: LIDOCAINE 5% (700 MG) TRANSDERMAL ADH..PATCH TP SCH (11:51)
--- NOTE | 2018-10-11 16:35 | PDOC PROGRESS REPORT ---
Subjective Subjective:: This is a 68 years old black female patient with past medical history of widespread stage IV metastatic liver cancer on hospice with intractable abdominal pain. Patient has been on dilated to PCP. Despite using the pump patient still in pain. Currently she has been awaiting hospice placement. 10/10/2018: Yesterday night patient had an episode of agitation and trying to pull out her IV lines and shows temporarily soft restraint out of wrist. Today I seen patient sleeping quietly the restraints were removed. Patient is potential discharge to [facility]. 10/11/2018: Patient relatively stable no agitation or combativeness. Reason For Visit: INTRACTABLE PAIN TERMINAL CANCER Physical Exam Vital Signs: Temp Pulse Resp BP Pulse Ox 98.0 F 79 14 146/75 H 96 10/09/18 07:34 10/09/18 14:04 10/11/18 03:00 10/09/18 14:04 10/11/18 03:00 Intake & Output 10/10/18 10/11/18 10/12/18 06:59 06:59 06:59 Intake Total 650 300 0 Output Total 1787 250 Balance 650 -1487 -250 Weight 88.6 kg 89.4 kg Results Laboratory Results: 10/04/18 18:14 10/04/18 18:14 10/04/18 10/04/18 18:14 18:14 Creatine Kinase 49 CK-MB (CK-2) 1.50 Troponin I < 0.012 NT-Pro-B Natriuret Pep 215 Impressions: Chest X-Ray 10/04/18 18:40 IMPRESSION: No acute disease. Convex outward bulge about the right paratracheal stripe/right suprahilar region could indicate lymphadenopathy. Recommend correlation with CT of the chest. copyright 2010 [employer]- All Rights Reserved Abdomen/Pelvis CT 10/04/18 20:09 IMPRESSION: Bulky soft tissue mass located about the retroperitoneum which extrudes mass effect upon the posterior margins of the pancreatic head and is inseparable from the inferior aspect of the caudate lobe of the liver. Overall, this finding most likely indicates bulky retroperitoneal lymphadenopathy, and is suspicious for either metastatic disease or lymphoma. An exophytic mass emanating from the caudate lobe of the liver is considered less likely. Superimposed destructive osseous lesions involving the T7-L1 vertebral bodies with associated paravertebral soft tissue masses could indicate additional metastases or lymphomatous involvement. Small pericardial effusion. Nonobstructive bilateral nephrolithiasis. Somewhat nodular liver contour. Correlate for cirrhosis. TECHNICAL DOCUMENTATION: Quality ID # 436: Final reports with documentation of one or more dose reduction techniques (e.g., Automated exposure control, adjustment of the mA and/or kV according to patient size, use of iterative reconstruction technique) copyright 2011 [employer]- All Rights Reserved Assessment and Plan - Diagnosis (1) Intractable abdominal pain Is this a current diagnosis for this admission?: Yes Plan: Continue dilated PCP. (2) Stage IV liver cancer with wide metastas Is this a current diagnosis for this admission?: Yes Plan: Patient awaiting hospice placement.
[2018-10-11] MEDS: PHARMACY COMMUNICATION ORDER MC SCH (22:17)
[2018-10-11] MEDS: HYDROMORPHONE HCL 30 MG/60 ML RTUINJ IV PRN (22:43)
[2018-10-12] MEDS: LORAZEPAM INJ 2 MG/1 ML VIAL IV PRN ×6 (00:07→23:07)
[2018-10-12] MEDS: METHOCARBAMOL 500 MG TABLET PO SCH ×5 (01:10→23:12)
[2018-10-12] MEDS: PANTOPRAZOLE SODIUM 20 MG TABLET.DR PO SCH (05:17)
[2018-10-12] MEDS: DEXAMETHASONE 4 MG TABLET PO SCH ×3 (05:17→21:27)
[2018-10-12] MEDS: LIDOCAINE 5% (700 MG) TRANSDERMAL ADH..PATCH TP SCH (09:30)
[2018-10-12] MEDS: DIVALPROEX SODIUM 250 MG TAB.SR.24H PO SCH ×2 (09:36→21:27)
[2018-10-12] MEDS: LACTULOSE SYRUP 20 GM/30 ML UDCUP PO SCH (09:36)
--- NOTE | 2018-10-12 14:25 | PDOC PROGRESS REPORT ---
Subjective Progress Note for:: 10/12/18 Subjective:: No significant event overnight. Reason For Visit: INTRACTABLE PAIN TERMINAL CANCER Physical Exam Vital Signs: Temp Pulse Resp BP Pulse Ox 98.0 F 79 14 146/75 H 96 10/09/18 07:34 10/09/18 14:04 10/11/18 03:00 10/09/18 14:04 10/11/18 03:00 Intake & Output 10/11/18 10/12/18 10/13/18 06:59 06:59 06:59 Intake Total 300 240 Output Total 1787 950 Balance -1487 -710 Weight 89.4 kg 88.9 kg Results Laboratory Results: 10/04/18 18:14 10/04/18 18:14 10/04/18 10/04/18 18:14 18:14 Creatine Kinase 49 CK-MB (CK-2) 1.50 Troponin I < 0.012 NT-Pro-B Natriuret Pep 215 Impressions: Chest X-Ray 10/04/18 18:40 IMPRESSION: No acute disease. Convex outward bulge about the right paratracheal stripe/right suprahilar region could indicate lymphadenopathy. Recommend correlation with CT of the chest. copyright 2011 [employer]- All Rights Reserved Abdomen/Pelvis CT 10/04/18 20:09 IMPRESSION: Bulky soft tissue mass located about the retroperitoneum which extrudes mass effect upon the posterior margins of the pancreatic head and is inseparable from the inferior aspect of the caudate lobe of the liver. Overall, this finding most likely indicates bulky retroperitoneal lymphadenopathy, and is suspicious for either metastatic disease or lymphoma. An exophytic mass emanating from the caudate lobe of the liver is considered less likely. Superimposed destructive osseous lesions involving the T7-L1 vertebral bodies with associated paravertebral soft tissue masses could indicate additional metastases or lymphomatous involvement. Small pericardial effusion. Nonobstructive bilateral nephrolithiasis. Somewhat nodular liver contour. Correlate for cirrhosis. TECHNICAL DOCUMENTATION: Quality ID # 436: Final reports with documentation of one or more dose reduction techniques (e.g., Automated exposure control, adjustment of the mA and/or kV according to patient size, use of iterative reconstruction technique) copyright 2011 [employer]- All Rights Reserved Assessment and Plan - Diagnosis (1) Intractable abdominal pain Is this a current diagnosis for this admission?: Yes Plan: Continue dilated PCP. (2) Stage IV liver cancer with wide metastas Is this a current diagnosis for this admission?: Yes Plan: Patient awaiting hospice placement.
[2018-10-12] MEDS: NORMAL SALINE 1000 ML 1,000 ML IV PRN (18:39)
[2018-10-12] MEDS ORDERED: HYDROMORPHONE HCL INJ/PF 2 MG/ML AMPULE IV PRN (20:01)
[2018-10-12] MEDS: PHARMACY COMMUNICATION ORDER MC SCH (21:28)
[2018-10-12] MEDS: HYDROMORPHONE HCL INJ/PF 2 MG/ML AMPULE IV PRN (22:55)
[2018-10-13] MEDS: HYDROMORPHONE HCL INJ/PF 2 MG/ML AMPULE IV PRN ×4 (00:08→23:53)
[2018-10-13] MEDS: LORAZEPAM INJ 2 MG/1 ML VIAL IV PRN ×4 (01:10→23:47)
[2018-10-13] MEDS: CHLORPROMAZINE HCL INJ 25 MG/1 ML AMPULE IV PRN (04:44)
[2018-10-13] MEDS: PANTOPRAZOLE SODIUM 20 MG TABLET.DR PO SCH (05:29)
[2018-10-13] MEDS: METHOCARBAMOL 500 MG TABLET PO SCH ×3 (05:29→18:14)
[2018-10-13] MEDS: DEXAMETHASONE 4 MG TABLET PO SCH ×3 (05:29→21:49)
[2018-10-13] MEDS: HYDROMORPHONE HCL 30 MG/60 ML RTUINJ IV PRN (09:34)
[2018-10-13] MEDS: LACTULOSE SYRUP 20 GM/30 ML UDCUP PO SCH (12:47)
[2018-10-13] MEDS: LIDOCAINE 5% (700 MG) TRANSDERMAL ADH..PATCH TP SCH (12:48)
[2018-10-13] MEDS: DIVALPROEX SODIUM 250 MG TAB.SR.24H PO SCH ×2 (12:48→21:49)
--- NOTE | 2018-10-13 15:33 | PDOC PROGRESS REPORT ---
Subjective Progress Note for:: 10/13/18 Subjective:: No significant event overnight. Reason For Visit: INTRACTABLE PAIN TERMINAL CANCER Physical Exam Vital Signs: Temp Pulse Resp BP Pulse Ox 98.0 F 79 16 146/75 H 96 10/09/18 07:34 10/09/18 14:04 10/13/18 13:00 10/09/18 14:04 10/11/18 03:00 Intake & Output 10/12/18 10/13/18 10/14/18 06:59 06:59 06:59 Intake Total 240 200 0 Output Total 950 1100 100 Balance -710 -900 -100 Weight 88.9 kg 88.9 kg Results Laboratory Results: 10/04/18 18:14 10/04/18 18:14 10/04/18 10/04/18 18:14 18:14 Creatine Kinase 49 CK-MB (CK-2) 1.50 Troponin I < 0.012 NT-Pro-B Natriuret Pep 215 Impressions: Chest X-Ray 10/04/18 18:40 IMPRESSION: No acute disease. Convex outward bulge about the right paratracheal stripe/right suprahilar region could indicate lymphadenopathy. Recommend correlation with CT of the chest. copyright 2010 [employer]- All Rights Reserved Abdomen/Pelvis CT 10/04/18 20:09 IMPRESSION: Bulky soft tissue mass located about the retroperitoneum which extrudes mass effect upon the posterior margins of the pancreatic head and is inseparable from the inferior aspect of the caudate lobe of the liver. Overall, this finding most likely indicates bulky retroperitoneal lymphadenopathy, and is suspicious for either metastatic disease or lymphoma. An exophytic mass emanating from the caudate lobe of the liver is considered less likely. Superimposed destructive osseous lesions involving the T7-L1 vertebral bodies with associated paravertebral soft tissue masses could indicate additional metastases or lymphomatous involvement. Small pericardial effusion. Nonobstructive bilateral nephrolithiasis. Somewhat nodular liver contour. Correlate for cirrhosis. TECHNICAL DOCUMENTATION: Quality ID # 436: Final reports with documentation of one or more dose reduction techniques (e.g., Automated exposure control, adjustment of the mA and/or kV according to patient size, use of iterative reconstruction technique) copyright 2011 [employer]- All Rights Reserved Assessment and Plan - Diagnosis (1) Intractable abdominal pain Is this a current diagnosis for this admission?: Yes Plan: Continue dilated PCP. (2) Stage IV liver cancer with wide metastas Is this a current diagnosis for this admission?: Yes Plan: Patient awaiting hospice placement.
[2018-10-13] MEDS: PHARMACY COMMUNICATION ORDER MC SCH (23:48)
[2018-10-14] MEDS ORDERED: CHLORPROMAZINE HCL INJ 25 MG/1 ML AMPULE ONE (00:04)
[2018-10-14] MEDS: CHLORPROMAZINE HCL INJ 25 MG/1 ML AMPULE IV PRN (00:55)
[2018-10-14] MEDS: METHOCARBAMOL 500 MG TABLET PO SCH ×5 (01:34→23:13)
[2018-10-14] MEDS: DEXAMETHASONE 4 MG TABLET PO SCH ×3 (05:14→22:38)
[2018-10-14] MEDS: PANTOPRAZOLE SODIUM 20 MG TABLET.DR PO SCH (05:14)
[2018-10-14] MEDS: NORMAL SALINE 1000 ML 1,000 ML IV PRN (05:40)
[2018-10-14] MEDS: LACTULOSE SYRUP 20 GM/30 ML UDCUP PO SCH (11:29)
[2018-10-14] MEDS: DIVALPROEX SODIUM 250 MG TAB.SR.24H PO SCH ×2 (11:29→22:38)
[2018-10-14] MEDS: LIDOCAINE 5% (700 MG) TRANSDERMAL ADH..PATCH TP SCH (12:14)
--- NOTE | 2018-10-14 15:35 | PDOC PROGRESS REPORT ---
Subjective Progress Note for:: 10/14/18 Subjective:: No significant event overnight. Patient has been awaiting placement. Reason For Visit: INTRACTABLE PAIN TERMINAL CANCER Physical Exam Vital Signs: Temp Pulse Resp BP Pulse Ox 98.0 F 79 14 146/75 H 96 10/09/18 07:34 10/09/18 14:04 10/14/18 12:39 10/09/18 14:04 10/11/18 03:00 Intake & Output 10/13/18 10/14/18 10/15/18 06:59 06:59 06:59 Intake Total 200 1100 Output Total 1100 600 Balance -900 500 Weight 88.9 kg 88.9 kg Results Laboratory Results: 10/04/18 18:14 10/04/18 18:14 10/04/18 10/04/18 18:14 18:14 Creatine Kinase 49 CK-MB (CK-2) 1.50 Troponin I < 0.012 NT-Pro-B Natriuret Pep 215 Impressions: Chest X-Ray 10/04/18 18:40 IMPRESSION: No acute disease. Convex outward bulge about the right paratracheal stripe/right suprahilar region could indicate lymphadenopathy. Recommend correlation with CT of the chest. copyright 2011 [employer]- All Rights Reserved Abdomen/Pelvis CT 10/04/18 20:09 IMPRESSION: Bulky soft tissue mass located about the retroperitoneum which extrudes mass effect upon the posterior margins of the pancreatic head and is inseparable from the inferior aspect of the caudate lobe of the liver. Overall, this finding most likely indicates bulky retroperitoneal lymphadenopathy, and is suspicious for either metastatic disease or lymphoma. An exophytic mass emanating from the caudate lobe of the liver is considered less likely. Superimposed destructive osseous lesions involving the T7-L1 vertebral bodies with associated paravertebral soft tissue masses could indicate additional metastases or lymphomatous involvement. Small pericardial effusion. Nonobstructive bilateral nephrolithiasis. Somewhat nodular liver contour. Correlate for cirrhosis. TECHNICAL DOCUMENTATION: Quality ID # 436: Final reports with documentation of one or more dose reduction techniques (e.g., Automated exposure control, adjustment of the mA and/or kV according to patient size, use of iterative reconstruction technique) copyright 2011 [employer]- All Rights Reserved Assessment and Plan - Diagnosis (1) Intractable abdominal pain Is this a current diagnosis for this admission?: Yes Plan: Continue dilated PCP. (2) Stage IV liver cancer with wide metastas Is this a current diagnosis for this admission?: Yes Plan: Patient awaiting hospice placement.
[2018-10-14] MEDS: PHARMACY COMMUNICATION ORDER MC SCH (22:38)
[2018-10-14] MEDS: LORAZEPAM INJ 2 MG/1 ML VIAL IV PRN (22:48)
[2018-10-15] MEDS: PANTOPRAZOLE SODIUM 20 MG TABLET.DR PO SCH (07:45)
[2018-10-15] MEDS: DEXAMETHASONE 4 MG TABLET PO SCH ×3 (07:45→22:09)
[2018-10-15] MEDS: METHOCARBAMOL 500 MG TABLET PO SCH ×3 (07:45→17:06)
[2018-10-15] MEDS: LORAZEPAM INJ 2 MG/1 ML VIAL IV PRN (07:55)
[2018-10-15] MEDS: LACTULOSE SYRUP 20 GM/30 ML UDCUP PO SCH (13:05)
[2018-10-15] MEDS: DIVALPROEX SODIUM 250 MG TAB.SR.24H PO SCH ×2 (13:05→22:09)
[2018-10-15] MEDS: HYDROMORPHONE HCL 30 MG/60 ML RTUINJ IV PRN (17:04)
[2018-10-15] MEDS: LIDOCAINE 5% (700 MG) TRANSDERMAL ADH..PATCH TP SCH (17:04)
--- NOTE | 2018-10-15 17:53 | PDOC PROGRESS REPORT ---
Subjective Progress Note for:: 10/15/18 Subjective:: This is a 68 year old female with a past medical history of widespread metastatic liver cancer on hospice admitted 10/05/2018 for intractable pain. Patient is currently on a dilaudid pump at 1 mg/hr. She is still awaiting hospice placement. Upon encounter this morning, she says that she still having abdominal pain . And appears to be in mild distress. We will increase dose of MECHANICAL MAINTENANCE SUPERVISOR. Reason For Visit: INTRACTABLE PAIN TERMINAL CANCER Physical Exam Vital Signs: Temp Pulse Resp BP Pulse Ox 98.0 F 79 16 146/75 H 96 10/09/18 07:34 10/09/18 14:04 10/15/18 12:08 10/09/18 14:04 10/11/18 03:00 Intake & Output 10/14/18 10/15/18 10/16/18 06:59 06:59 06:59 Intake Total 1100 50 Output Total 600 340 Balance 500 -290 Weight 195 lb 15.855 oz 192 lb 7.417 oz General appearance: PRESENT: no acute distress, well-developed, well-nourished Head exam: PRESENT: atraumatic, normocephalic Eye exam: PRESENT: conjunctiva pink, EOMI, PERRLA. ABSENT: scleral icterus Ear exam: PRESENT: normal external ear exam Mouth exam: PRESENT: moist, tongue midline Neck exam: ABSENT: carotid bruit, JVD, lymphadenopathy, thyromegaly Respiratory exam: PRESENT: clear to auscultation yane. ABSENT: rales, rhonchi, wheezes Cardiovascular exam: PRESENT: RRR. ABSENT: diastolic murmur, rubs, systolic murmur Pulses: PRESENT: normal dorsalis pedis pul GI/Abdominal exam: PRESENT: normal bowel sounds, soft, tenderness - mild direct epigastric tenderness, negative rebound. ABSENT: distended, guarding, mass, organolmegaly, rebound Rectal exam: PRESENT: deferred Neurological exam: PRESENT: alert, awake, oriented to person, oriented to place, oriented to time, oriented to situation, CN II-XII grossly intact. ABSENT: motor sensory deficit Results Laboratory Results: 10/04/18 18:14 10/04/18 18:14 10/04/18 10/04/18 18:14 18:14 Creatine Kinase 49 CK-MB (CK-2) 1.50 Troponin I < 0.012 NT-Pro-B Natriuret Pep 215 Impressions: Chest X-Ray 10/04/18 18:40 IMPRESSION: No acute disease. Convex outward bulge about the right paratracheal stripe/right suprahilar region could indicate lymphadenopathy. Recommend correlation with CT of the chest. copyright 2010 [employer]- All Rights Reserved Abdomen/Pelvis CT 10/04/18 20:09 IMPRESSION: Bulky soft tissue mass located about the retroperitoneum which extrudes mass effect upon the posterior margins of the pancreatic head and is inseparable from the inferior aspect of the caudate lobe of the liver. Overall, this finding most likely indicates bulky retroperitoneal lymphadenopathy, and is suspicious for either metastatic disease or lymphoma. An exophytic mass emanating from the caudate lobe of the liver is considered less likely. Superimposed destructive osseous lesions involving the T7-L1 vertebral bodies with associated paravertebral soft tissue masses could indicate additional metastases or lymphomatous involvement. Small pericardial effusion. Nonobstructive bilateral nephrolithiasis. Somewhat nodular liver contour. Correlate for cirrhosis. TECHNICAL DOCUMENTATION: Quality ID # 436: Final reports with documentation of one or more dose reduction techniques (e.g., Automated exposure control, adjustment of the mA and/or kV according to patient size, use of iterative reconstruction technique) copyright 2011 [employer]- All Rights Reserved Assessment and Plan - Diagnosis (1) Intractable abdominal pain Is this a current diagnosis for this admission?: Yes Plan: Patient is currently on a dilaudid pump at 1 mg/hr. Increase to 10 mg/h. Awaiting hospice placement. (2) Stage IV liver cancer with wide metastas Is this a current diagnosis for this admission?: Yes Plan: As per number 1. - Time Time Spent with patient: 25-34 minutes
[2018-10-15] MEDS: HALOPERIDOL LACTATE INJ 5 MG/1 ML VIAL IV PRN (22:09)
[2018-10-15] MEDS: PHARMACY COMMUNICATION ORDER MC SCH (23:01)
[2018-10-16] MEDS: METHOCARBAMOL 500 MG TABLET PO SCH ×4 (05:52→17:06)
[2018-10-16] MEDS: LORAZEPAM INJ 2 MG/1 ML VIAL IV PRN ×4 (05:52→23:24)
[2018-10-16] MEDS: DEXAMETHASONE 4 MG TABLET PO SCH ×3 (05:52→23:14)
[2018-10-16] MEDS: PANTOPRAZOLE SODIUM 20 MG TABLET.DR PO SCH (05:52)
[2018-10-16] MEDS: HYDROMORPHONE HCL 30 MG/60 ML RTUINJ IV PRN ×2 (08:17→23:20)
[2018-10-16] MEDS: DIVALPROEX SODIUM 250 MG TAB.SR.24H PO SCH ×2 (09:50→23:14)
[2018-10-16] MEDS: LACTULOSE SYRUP 20 GM/30 ML UDCUP PO SCH (09:50)
[2018-10-16] MEDS: LIDOCAINE 5% (700 MG) TRANSDERMAL ADH..PATCH TP SCH (12:18)
--- NOTE | 2018-10-16 18:57 | PDOC PROGRESS REPORT ---
Subjective Progress Note for:: 10/16/18 Subjective:: This is a 68 year old female with a past medical history of widespread metastatic liver cancer on hospice admitted 10/05/2018 for intractable pain. Patient is currently on a dilaudid pump at 1 mg/hr. She is still awaiting hospice placement. Upon encounter this morning, she says that she still having abdominal pain . And appears to be in mild distress. We will increase dose of IMPROVEMENT ENGINEER. 10/16: No acute event overnight. Dilaudid was increased to 2 mg/hr yesterday as patient complained that her pain was not being controlled well. Upon encounter today, patient appeared very comfortable on bed. When this provider came in, she says that she is in severe pain. She is awaiting hospice placement. Discussed with daughter along with discharge planning as daughter was initially hesitant about her going to inpatient hospice due to insurance issues. Daughter finally has agreed to proceed with inpatient hospice. Reason For Visit: INTRACTABLE PAIN TERMINAL CANCER Physical Exam Vital Signs: Temp Pulse Resp BP Pulse Ox 98.0 F 79 16 146/75 H 96 10/09/18 07:34 10/09/18 14:04 10/16/18 17:00 10/09/18 14:04 10/11/18 03:00 Intake & Output 10/15/18 10/16/18 10/17/18 06:59 06:59 06:59 Intake Total 50 390 120 Output Total 340 1150 500 Balance -290 -760 -380 Weight 192 lb 7.417 oz 192 lb 3.889 oz General appearance: PRESENT: no acute distress, well-developed, well-nourished Head exam: PRESENT: atraumatic, normocephalic Eye exam: PRESENT: conjunctiva pink, EOMI, PERRLA. ABSENT: scleral icterus Ear exam: PRESENT: normal external ear exam Mouth exam: PRESENT: moist, tongue midline Neck exam: ABSENT: carotid bruit, JVD, lymphadenopathy, thyromegaly Respiratory exam: PRESENT: clear to auscultation yane. ABSENT: rales, rhonchi, wheezes Cardiovascular exam: PRESENT: RRR. ABSENT: diastolic murmur, rubs, systolic murmur Pulses: PRESENT: normal dorsalis pedis pul GI/Abdominal exam: PRESENT: normal bowel sounds, soft. ABSENT: distended, guarding, mass, organolmegaly, rebound, tenderness Rectal exam: PRESENT: deferred Neurological exam: PRESENT: alert, awake, oriented to person, oriented to place, oriented to time, CN II-XII grossly intact. ABSENT: motor sensory deficit Results Laboratory Results: 10/04/18 18:14 10/04/18 18:14 10/04/18 10/04/18 18:14 18:14 Creatine Kinase 49 CK-MB (CK-2) 1.50 Troponin I < 0.012 NT-Pro-B Natriuret Pep 215 Impressions: Chest X-Ray 10/04/18 18:40 IMPRESSION: No acute disease. Convex outward bulge about the right paratracheal stripe/right suprahilar region could indicate lymphadenopathy. Recommend correlation with CT of the chest. copyright 2010 [employer]- All Rights Reserved Abdomen/Pelvis CT 10/04/18 20:09 IMPRESSION: Bulky soft tissue mass located about the retroperitoneum which extrudes mass effect upon the posterior margins of the pancreatic head and is inseparable from the inferior aspect of the caudate lobe of the liver. Overall, this finding most likely indicates bulky retroperitoneal lymphadenopathy, and is suspicious for either metastatic disease or lymphoma. An exophytic mass emanating from the caudate lobe of the liver is considered less likely. Superimposed destructive osseous lesions involving the T7-L1 vertebral bodies with associated paravertebral soft tissue masses could indicate additional metastases or lymphomatous involvement. Small pericardial effusion. Nonobstructive bilateral nephrolithiasis. Somewhat nodular liver contour. Correlate for cirrhosis. TECHNICAL DOCUMENTATION: Quality ID # 436: Final reports with documentation of one or more dose reduction techniques (e.g., Automated exposure control, adjustment of the mA and/or kV according to patient size, use of iterative reconstruction technique) copyright 2011 [employer]- All Rights Reserved Assessment and Plan - Diagnosis (1) Intractable abdominal pain Is this a current diagnosis for this admission?: Yes Plan: Patient is currently on a dilaudid pump at 1 mg/hr. Increase to 10 mg/h. Awaiting hospice placement. 10/16: Dilaudid was increased to 2 mg/hr yesterday as patient complained that her pain was not being controlled well. Upon encounter today, patient appeared very comfortable on bed. When this provider came in, she says that she is in severe pain. She is awaiting hospice placement. Discussed with daughter along with discharge planning as daughter was initially hesitant about her going to inpatient hospice due to insurance issues. Daughter finally has agreed to proceed with inpatient hospice. (2) Stage IV liver cancer with wide metastas Is this a current diagnosis for this admission?: Yes Plan: As per number 1. - Time Time Spent with patient: 25-34 minutes
[2018-10-16] MEDS: PHARMACY COMMUNICATION ORDER MC SCH (23:14)
[2018-10-17] MEDS: METHOCARBAMOL 500 MG TABLET PO SCH ×4 (01:14→22:27)
[2018-10-17] MEDS: HALOPERIDOL LACTATE INJ 5 MG/1 ML VIAL IV PRN (01:20)
[2018-10-17] MEDS: PANTOPRAZOLE SODIUM 20 MG TABLET.DR PO SCH (05:42)
[2018-10-17] MEDS: DEXAMETHASONE 4 MG TABLET PO SCH ×3 (05:42→22:27)
[2018-10-17] MEDS: HYDROMORPHONE HCL INJ/PF 2 MG/ML AMPULE IV PRN (06:07)
[2018-10-17] MEDS: NORMAL SALINE 1000 ML 1,000 ML IV PRN (08:54)
[2018-10-17] MEDS: HYDROMORPHONE HCL 30 MG/60 ML RTUINJ IV PRN ×2 (10:24→13:32)
[2018-10-17] MEDS: LACTULOSE SYRUP 20 GM/30 ML UDCUP PO SCH (11:42)
[2018-10-17] MEDS: DIVALPROEX SODIUM 250 MG TAB.SR.24H PO SCH ×2 (11:42→22:27)
--- NOTE | 2018-10-17 16:32 | PDOC PROGRESS REPORT ---
Subjective Progress Note for:: 10/17/18 Subjective:: This is a 68 year old female with a past medical history of widespread metastatic liver cancer on hospice admitted 10/05/2018 for intractable pain. Patient is currently on a dilaudid pump at 1 mg/hr. She is still awaiting hospice placement. Upon encounter this morning, she says that she still having abdominal pain . And appears to be in mild distress. We will increase dose of SI[employer]ER MACHINE. 10/16: Dilaudid was increased to 2 mg/hr yesterday as patient complained that her pain was not being controlled well. Upon encounter today, patient appeared very comfortable on bed. When this provider came in, she says that she is in severe pain. She is awaiting hospice placement. Discussed with daughter along with discharge planning as daughter was initially hesitant about her going to inpatient hospice due to insurance issues. Daughter finally has agreed to proceed with inpatient hospice. 10/17: No acute event overnight. She complains of abdominal pain today. Will incr ease dilaudid to 3 mg/hr. Patient just awaiting for inpatient hospice placement in [place]. Reason For Visit: INTRACTABLE PAIN TERMINAL CANCER Physical Exam Vital Signs: Temp Pulse Resp BP Pulse Ox 98.0 F 79 18 146/75 H 96 10/09/18 07:34 10/09/18 14:04 10/17/18 13:39 10/09/18 14:04 10/11/18 03:00 Intake & Output 10/16/18 10/17/18 10/18/18 06:59 06:59 06:59 Intake Total 1390 220 100 Output Total 1150 1300 400 Balance 240 -1080 -300 Weight 192 lb 3.889 oz 192 lb 3.889 oz General appearance: PRESENT: no acute distress, well-developed, well-nourished Head exam: PRESENT: atraumatic, normocephalic Eye exam: PRESENT: conjunctiva pink, EOMI, PERRLA. ABSENT: scleral icterus Ear exam: PRESENT: normal external ear exam Mouth exam: PRESENT: moist, tongue midline Neck exam: ABSENT: carotid bruit, JVD, lymphadenopathy, thyromegaly Respiratory exam: PRESENT: clear to auscultation yane. ABSENT: rales, rhonchi, wheezes Cardiovascular exam: PRESENT: RRR. ABSENT: diastolic murmur, rubs, systolic murmur Pulses: PRESENT: normal dorsalis pedis pul GI/Abdominal exam: PRESENT: normal bowel sounds, soft. ABSENT: distended, guarding, mass, organolmegaly, rebound, tenderness Rectal exam: PRESENT: deferred Neurological exam: PRESENT: alert, awake, oriented to person, oriented to place, oriented to time, CN II-XII grossly intact. ABSENT: motor sensory deficit Results Laboratory Results: 10/04/18 18:14 10/04/18 18:14 10/04/18 10/04/18 18:14 18:14 Creatine Kinase 49 CK-MB (CK-2) 1.50 Troponin I < 0.012 NT-Pro-B Natriuret Pep 215 Impressions: Chest X-Ray 10/04/18 18:40 IMPRESSION: No acute disease. Convex outward bulge about the right paratracheal stripe/right suprahilar region could indicate lymphadenopathy. Recommend correlation with CT of the chest. copyright 2011 [employer]- All Rights Reserved Abdomen/Pelvis CT 10/04/18 20:09 IMPRESSION: Bulky soft tissue mass located about the retroperitoneum which extrudes mass effect upon the posterior margins of the pancreatic head and is inseparable from the inferior aspect of the caudate lobe of the liver. Overall, this finding most likely indicates bulky retroperitoneal lymphadenopathy, and is suspicious for either metastatic disease or lymphoma. An exophytic mass emanating from the caudate lobe of the liver is considered less likely. Superimposed destructive osseous lesions involving the T7-L1 vertebral bodies with associated paravertebral soft tissue masses could indicate additional metastases or lymphomatous involvement. Small pericardial effusion. Nonobstructive bilateral nephrolithiasis. Somewhat nodular liver contour. Correlate for cirrhosis. TECHNICAL DOCUMENTATION: Quality ID # 436: Final reports with documentation of one or more dose reduction techniques (e.g., Automated exposure control, adjustment of the mA and/or kV according to patient size, use of iterative reconstruction technique) copyright 2011 [employer]- All Rights Reserved Assessment and Plan - Diagnosis (1) Intractable abdominal pain Is this a current diagnosis for this admission?: Yes Plan: Patient is currently on a dilaudid pump at 1 mg/hr. Increase to 10 mg/h. Awaiting hospice placement. 10/16: Dilaudid was increased to 2 mg/hr yesterday as patient complained that her pain was not being controlled well. Upon encounter today, patient appeared very comfortable on bed. When this provider came in, she says that she is in severe pain. She is awaiting hospice placement. Discussed with daughter along with discharge planning as daughter was initially hesitant about her going to inpatient hospice due to insurance issues. Daughter finally has agreed to proceed with inpatient hospice. 10/17: She complains of abdominal pain today. Will increase dilaudid to 3 mg/hr. Patient just awaiting for inpatient hospice placement in [place]. (2) Stage IV liver cancer with wide metastas Is this a current diagnosis for this admission?: Yes Plan: As per number 1. - Time Time Spent with patient: 15-24 minutes
--- NOTE | 2018-10-17 17:52 | RADIOLOGY REPORT (SQ) ---
EXAM DESCRIPTION: CT HEAD WITHOUT COMPLETED DATE/TIME: 10/17/2018 5:41 pm REASON FOR STUDY: pt fell on left shoulder COMPARISON: None. TECHNIQUE: Axial images acquired through the brain without intravenous contrast. Images reviewed wi th bone, brain and subdural windows. Additional sagittal and coronal reconstructions were generated. Images stored on PACS. All CT scanners at this facility use dose modulation, iterative reconstruction, and/or weight based d osing when appropriate to reduce radiation dose to as low as reasonably achievable (ALARA). [facility]: Dose Right [facility]: CareDose [facility]: Dose Right [facility]: Teradose 4D [facility]: Smart [employer] RADIATION DOSE: CT Rad equipment meets quality standard of care and radiation dose reduction techniq ues were employed. CTDIvol: 53.2 mGy. DLP: 1124 mGy-cm. mGy. LIMITATIONS: None. FINDINGS: VENTRICLES: Prominent. CEREBRUM: No masses. No hemorrhage. No midline shift. Areas of low density in the white matter mos t likely due to chronic micro-vascular ischemic change. No evidence for acute infarction. CEREBELLUM: No masses. No hemorrhage. No alteration of density. No evidence for acute infarction. EXTRAAXIAL SPACES: Mild age-related involutional change. No fluid collections. No masses. ORBITS AND GLOBE: No intra- or extraconal masses. Normal contour of globe without masses. CALVARIUM: No fracture. PARANASAL SINUSES: No fluid or mucosal thickening. SOFT TISSUES: No mass or hematoma. OTHER: No other significant finding. IMPRESSION: MILD CHRONIC CHANGES OF ATROPHY AND MICROVASCULAR ISCHEMIA. NO ACUTE PROCESS. EVIDENCE OF ACUTE STROKE: NO. TECHNICAL DOCUMENTATION: JOB ID: [id number] Quality ID # 436: Final reports with documentation of one or more dose reduction techniques (e.g., Au tomated exposure control, adjustment of the mA and/or kV according to patient size, use of iterative reconstruction technique) 2010 [employer]- All Rights Reserved Reading location - IP/workstation name: [email or web address]
--- NOTE | 2018-10-17 18:07 | RADIOLOGY REPORT (SQ) ---
EXAM DESCRIPTION: PELVIS AP COMPLETED DATE/TIME: 10/17/2018 5:55 pm REASON FOR STUDY: patient fell COMPARISON: None. NUMBER OF VIEWS: One view TECHNIQUE: AP Pelvis LIMITATIONS: None. FINDINGS: MINERALIZATION: Normal. HIPS: No acute fracture or dislocation. No worrisome bone lesions. PELVIS AND SACRUM: No acute fracture or dislocation. No worrisome bone lesions. Moderate sacroiliiti s. PUBIS AND ISCHIUM: No acute fracture. LOWER LUMBAR SPINE: Moderate degenerative changes. SOFT TISSUES: No findings. OTHER: No other significant finding. IMPRESSION: No fracture identified. COMMENT: Pelvic fractures are often occult on plain radiographs. If strong clinical suspicion for f racture, recommend CT or MR. TECHNICAL DOCUMENTATION: JOB ID: [id number] [place]-72 2010 [employer]- All Rights Reserved Reading location - IP/workstation name: [email or web address]
--- NOTE | 2018-10-17 18:08 | RADIOLOGY REPORT (SQ) ---
EXAM DESCRIPTION: CHEST 2 VIEWS COMPLETED DATE/TIME: 10/17/2018 5:55 pm REASON FOR STUDY: pt fell on left shoulder COMPARISON: 10/04/2018. EXAM PARAMETERS: NUMBER OF VIEWS: two views TECHNIQUE: Digital Frontal and Lateral radiographic views of the chest acquired. RADIATION DOSE: NA LIMITATIONS: none FINDINGS: LUNGS AND PLEURA: Mild chronic interstitial changes. No focal infiltrates, masses or pneu mothorax. No pleural effusion. MEDIASTINUM AND HILAR STRUCTURES: Right paratracheal fullness, unchanged. HEART AND VASCULAR STRUCTURES: Heart normal size. No evidence for failure. BONES: No acute findings. Degenerative changes in the spine. HARDWARE: None in the chest. OTHER: No other significant finding. IMPRESSION: NO ACUTE RADIOGRAPHIC FINDING IN THE CHEST. RIGHT PARATRACHEAL FULLNESS SUSPICIOUS FOR MASS OR ADENOPATHY. TECHNICAL DOCUMENTATION: JOB ID: [id number]- All Rights Reserved Reading location - IP/workstation name: [email or web address]
[2018-10-17] MEDS: CLONAZEPAM 1 MG TABLET PO PRN (19:07)
[2018-10-17] MEDS: LIDOCAINE 5% (700 MG) TRANSDERMAL ADH..PATCH TP SCH (19:20)
[2018-10-17] MEDS: PHARMACY COMMUNICATION ORDER MC SCH (22:27)
[2018-10-18] MEDS: HYDROMORPHONE HCL 30 MG/60 ML RTUINJ IV PRN ×2 (01:10→11:57)
[2018-10-18] MEDS: LORAZEPAM INJ 2 MG/1 ML VIAL IV PRN ×2 (01:13→09:51)
[2018-10-18] MEDS: METHOCARBAMOL 500 MG TABLET PO SCH ×3 (01:52→11:01)
[2018-10-18] MEDS: DEXAMETHASONE 4 MG TABLET PO SCH (06:15)
[2018-10-18] MEDS: PANTOPRAZOLE SODIUM 20 MG TABLET.DR PO SCH (06:15)
[2018-10-18] MEDS: LIDOCAINE 5% (700 MG) TRANSDERMAL ADH..PATCH TP SCH (09:49)
[2018-10-18] MEDS: CLONAZEPAM 1 MG TABLET PO PRN (09:55)
[2018-10-18] MEDS: DIVALPROEX SODIUM 250 MG TAB.SR.24H PO SCH (10:19)
[2018-10-18] MEDS: LACTULOSE SYRUP 20 GM/30 ML UDCUP PO SCH (10:19)
--- NOTE | 2018-10-18 10:45 | PDOC TRANSFER SUMMARY ---
General - Admit/Disc Date/PCP Admission Date/Primary Care Provider: 10/04/18 22:55 IGOR VILLALOBOS MD Discharge Date: 10/18/18 - Discharge Diagnosis (1) Intractable abdominal pain Is this a current diagnosis for this admission?: Yes (2) Stage IV liver cancer with wide metastas Is this a current diagnosis for this admission?: Yes - Additional Information Resuscitation Status: Do Not Resuscitate Prescriptions: Clonazepam [Klonopin 1 mg Tablet] 1 mg PO Q12HP PRN #15 tablet PRN Reason: Home Medications: Dexamethasone [Decadron 4 mg Tablet] 4 mg PO Q12 10/05/18 Fentanyl [Duragesic 100 Mcg/Hr Transdermal Patch] 1 patch TOP Q3D 10/05/18 Fentanyl [Duragesic 50 Mcg/Hr Transdermal Patch] 1 patch TOP Q3D 10/05/18 Clonazepam [Klonopin 1 mg Tablet] 1 mg PO Q12HP PRN #15 tablet 10/18/18 History of Present Illness Admission Date/PCP: 10/04/18 22:55 IGOR VILLALOBOS MD History of Present Illness: Admitting hospitalist's H&P: HERNESTO SMITH is a 68 year old female with a past medical history of widespread metastatic liver cancer on hospice with intractable pain. She is accompanied by her daughter who reports intractable pain despite fentanyl 150 mics and methadone. They have attempted to initiate inpatient hospice via the hospice doctor Dr. Villalobos but have been unsuccessful. In the emergency room she requires IV Dilaudid for adequate control of symptoms. Imaging reveals widespread intra- abdominal and retroperitoneal metastasis. She is referred to the hospitalist for intractable pain. Daughter verifies CODE STATUS wishing comfort measures and hospice placement. Hospital Course Hospital Course: This is a 68 year old female with a past medical history of widespread metastatic liver cancer on hospice admitted 10/05/2018 for intractable pain. She was initially on different pain regimen but had breakthrough pains. She was eventually started on dialudid pump which has provided optimal pain control. Patient did have a fall incident from her bed on 10/17. Trauma work-up was negative. She will be going to inpatient hospice in [place]. Physical Exam Vital Signs: Temp Pulse Resp BP Pulse Ox 98.0 F 79 16 146/75 H 96 10/09/18 07:34 10/09/18 14:04 10/18/18 07:00 10/09/18 14:04 10/11/18 03:00 Intake & Output 10/17/18 10/18/18 10/19/18 06:59 06:59 06:59 Intake Total 220 100 Output Total 1300 401 Balance -1080 -301 Weight 192 lb 3.889 oz 192 lb 7.417 oz General appearance: PRESENT: no acute distress, well-developed, well-nourished Head exam: PRESENT: atraumatic, normocephalic Eye exam: PRESENT: conjunctiva pink, EOMI, PERRLA. ABSENT: scleral icterus Ear exam: PRESENT: normal external ear exam Mouth exam: PRESENT: moist, tongue midline Neck exam: ABSENT: carotid bruit, JVD, lymphadenopathy, thyromegaly Respiratory exam: PRESENT: clear to auscultation yane. ABSENT: rales, rhonchi, wheezes Cardiovascular exam: PRESENT: RRR. ABSENT: diastolic murmur, rubs, systolic murmur Pulses: PRESENT: normal dorsalis pedis pul GI/Abdominal exam: PRESENT: normal bowel sounds, soft. ABSENT: distended, guarding, mass, organolmegaly, rebound, tenderness Rectal exam: PRESENT: deferred Neurological exam: PRESENT: alert, awake, oriented to person, oriented to place, oriented to time, oriented to situation, CN II-XII grossly intact. ABSENT: motor sensory deficit Results Laboratory Results: 10/04/18 18:14 10/04/18 18:14 10/04/18 10/04/18 18:14 18:14 Creatine Kinase 49 CK-MB (CK-2) 1.50 Troponin I < 0.012 NT-Pro-B Natriuret Pep 215 Impressions: Abdomen/Pelvis CT 10/04/18 20:09 IMPRESSION: Bulky soft tissue mass located about the retroperitoneum which extrudes mass effect upon the posterior margins of the pancreatic head and is inseparable from the inferior aspect of the caudate lobe of the liver. Overall, this finding most likely indicates bulky retroperitoneal lymphadenopathy, and is suspicious for either metastatic disease or lymphoma. An exophytic mass emanating from the caudate lobe of the liver is considered less likely. Superimposed destructive osseous lesions involving the T7-L1 vertebral bodies with associated paravertebral soft tissue masses could indicate additional metastases or lymphomatous involvement. Small pericardial effusion. Nonobstructive bilateral nephrolithiasis. Somewhat nodular liver contour. Correlate for cirrhosis. TECHNICAL DOCUMENTATION: Quality ID # 436: Final reports with documentation of one or more dose reduction techniques (e.g., Automated exposure control, adjustment of the mA and/or kV according to patient size, use of iterative reconstruction technique) copyright 2011 [employer]- All Rights Reserved Chest X-Ray 10/17/18 00:00 IMPRESSION: NO ACUTE RADIOGRAPHIC FINDING IN THE CHEST. RIGHT PARATRACHEAL FULLNESS SUSPICIOUS FOR MASS OR ADENOPATHY. Head CT 10/17/18 00:00 IMPRESSION: MILD CHRONIC CHANGES OF ATROPHY AND MICROVASCULAR ISCHEMIA. NO ACUTE PROCESS. EVIDENCE OF ACUTE STROKE: NO. Pelvis X-Ray 10/17/18 00:00 IMPRESSION: No fracture identified. Qualifiers - * PATIENT BEING DISCHARGED WITH ANY OF THE FOLLOWING DIAGNOSIS: No
[2018-10-18] MEDS: HYDROMORPHONE HCL INJ/PF 2 MG/ML AMPULE IV PRN (13:40)
== END 2018-10-18 14:02 | disposition hospice, inpatient (51) | DRG 436 ==
LOC: ER 17:51 → EH 22:55 → 4S 10-05 01:41
PROVIDERS: ADMIT Internal Medicine; ATTEND Internal Medicine
DX: C22.8 Malignant neoplasm of liver, primary, unspecified as to type (principal); C79.89 Secondary malignant neoplasm of other specified sites; G89.3 Neoplasm related pain (acute) (chronic); Z66 Do not resuscitate; Z51.5 Encounter for palliative care; Z88.5 Allergy status to narcotic agent; Z88.2 Allergy status to sulfonamides; Z91.041 Radiographic dye allergy status; K21.9 Gastro-esophageal reflux disease without esophagitis; F32.9 Major depressive disorder, single episode, unspecified
CPT/HCPCS: 36415; 70450; 71045; 71046; 72170; 74176; 80053; 81001; 82550; 82553; 82962; 83690; 83880; 84484; 85025; 87086; 93005; 93010; 99291; A9270-GY; J1170; J1630; J2060; J2405; J3230; J3490; J7030